=== PATIENT | female | born 1950 | race Caucasian/White ===

== ENCOUNTER → 2016-08-10 | Outpatient (CLI) | payer BC ==
[~2016-08-10] MED LIST: ADVIN50/60 INH; ALBU0.5N2 NEB; ALBUAER2 INH; ALL100 PO; ASPI81CH2 PO; DICL1GEL28 TOP; DOXE150C PO; ERGO500037 PO; FERR1TAB23 PO; FRS/40 PO; HYDR-5688 PO; INSDGI SC; LIRA18IN SC; LOSA1TAB PO; LRS10 PO; NVLGI SC; NXM/40 PO; RIZA10TA18 PO; SIMV20TA2 PO; SNG10 PO; SYN200 PO; TIOTCAP INH; TOPI200T14 PO; TOPI50TA16 PO; ZNTT/150 PO
[2016-08-10 12:58] LABS: HEMATOCRIT 37.8 % (37-47); MEAN CELL VOLUME 90.4 fL (80-100); MEAN CORPUSCULAR HEMOGLOBIN 27.5 pg (25-34); MEAN CORPUSCULAR HGB CONC 30.4 g/dl (32-36); MEAN PLATELET VOLUME 9.6 fL (7.4-10.4); PLATELET COUNT 284 K/uL (130-400); RED BLOOD COUNT 4.18 M/uL (4.2-5.4); WHITE BLOOD COUNT 10.07 K/uL (4.8-10.8)
[2016-08-10 13:10] LABS: BLOOD UREA NITROGEN 15 mg/dl (7-18); BUN/CREATININE RATIO 12.1 (10-20); CARBON DIOXIDE 25 mmol/L (21-32); CHLORIDE 108 mmol/L (98-107); GLUCOSE 84 mg/dl (70-99); PHOSPHORUS 3.1 mg/dl (2.5-4.9); POTASSIUM 4.3 mmol/L (3.5-5.1); SODIUM 143 mmol/L (136-145)
[2016-08-10 13:16] LABS: ESTIMATED AVERAGE GLUCOSE 117 mg/dl; HA1C FLAG Normal (Normal)
[2016-08-10 13:19] LABS: URINE APPEARANCE CLEAR (CLEAR); URINE BILIRUBIN NEG (NEG); URINE COLOR YELLOW; URINE NITRITE NEG (NEG); URINE SPECIFIC GRAVITY 1.016 (1.000-1.030); UROBILINOGEN NEG (NEG)
[2016-08-10 13:21] LABS: MANUAL MICROSCOPIC REQUIRED? NO; REVIEW REQ? NO
[2016-08-10 13:44] LABS: URINE PROTIEN/CREAT RATIO 0.2 (0-0.2); URINE TOTAL PROTEIN 18.4 mg/dl (0-11.9)
== END | disposition home or self-care (01) ==
LOC: C.LAB1850 11:20
PROVIDERS: ATTEND Internal Medicine Nephrology
DX: I12.9 Hypertensive chronic kidney disease with stage 1 through stage 4 chronic kidney disease, or unspecified chronic kidney disease (principal); N18.3 Chronic kidney disease, stage 3 (moderate); D64.9 Anemia, unspecified; R60.9 Edema, unspecified; E55.9 Vitamin D deficiency, unspecified; E11.22 Type 2 diabetes mellitus with diabetic chronic kidney disease

== ENCOUNTER → 2016-09-18 | Outpatient (CLI) | payer BC ==
--- NOTE | 2016-09-18 13:40 | DIAGNOSTIC IMAGING REPORT ---
CHEST 2 VIEWS ROUTINE CLINICAL HISTORY: Productive cough, fever and congestion. COMPARISON STUDY: Chest radiograph April 16, 2016. FINDINGS: This exam is compromised by suboptimal penetration. Lung volumes are normal. There is no pneumothorax or pleural effusion. Cardiac size is at the upper limits of normal and is unchanged. There is no evidence of pulmonary edema. No consolidation is identified. IMPRESSION: No acute cardiopulmonary findings. Electronically signed by: Lebron Shi M.D. 09/18/2016 1:38 PM Dictated Date/Time: 09/18/2016 1:37 PM
== END | disposition home or self-care (01) ==
LOC: C.RAD1850 13:04
PROVIDERS: ATTEND Internal Medicine
DX: R05 Cough (principal)

== ENCOUNTER → 2016-12-18 | Outpatient (CLI) | payer BC ==
[2016-12-18 12:42] LABS: BASO % 0.2 %; BASO ABS # 0.02 K/uL (0-0.2); COMPLETE YES; EOS % 1.6 %; HEMATOCRIT 37.9 % (37-47); IG% 0.5 %; LYMPH % 15.5 %; MEAN CELL VOLUME 91.5 fL (80-100); MEAN CORPUSCULAR HEMOGLOBIN 27.8 pg (25-34); MEAN CORPUSCULAR HGB CONC 30.3 g/dl (32-36); MEAN PLATELET VOLUME 9.6 fL (7.4-10.4); NEUT % 76.2 %; PLATELET COUNT 251 K/uL (130-400); RED BLOOD COUNT 4.14 M/uL (4.2-5.4); WHITE BLOOD COUNT 10.35 K/uL (4.8-10.8)
[2016-12-18 13:33] LABS: CHOLESTEROL/HDL RATIO 2.1; URIC ACID 6.6 mg/dl (2.6-7.2)
[2016-12-18 13:39] LABS: ESTIMATED AVERAGE GLUCOSE 117 mg/dl; HA1C FLAG Normal (Normal)
[2016-12-18 22:03] LABS: THYROID STIMULATING HORMONE 0.779 uIu/ml (0.300-4.500)
== END | disposition home or self-care (01) ==
LOC: C.LAB1850 10:38
PROVIDERS: ATTEND Internal Medicine
DX: I10 Essential (primary) hypertension (principal); M10.9 Gout, unspecified; E11.8 Type 2 diabetes mellitus with unspecified complications

== ENCOUNTER → 2017-01-28 | Outpatient (CLI) | payer BC ==
--- NOTE | 2017-01-28 11:47 | DIAGNOSTIC IMAGING REPORT ---
CHEST 2 VIEWS ROUTINE CLINICAL HISTORY: R05 Chronic [id number] dyspnea COMPARISON STUDY: 09/18/2016 FINDINGS: The bones soft tissues and hemidiaphragms are normal. The cardiomediastinal silhouette is normal. The lungs are clear. The pulmonary vasculature is normal. IMPRESSION: Negative chest. Electronically signed by: Bandar Jarquin M.D. 01/28/2017 11:45 AM Dictated Date/Time: 01/28/2017 11:44 AM
[2017-01-28 13:20] LABS: HEMATOCRIT 37.6 % (37-47); MEAN CORPUSCULAR HEMOGLOBIN 27.3 pg (25-34); MEAN CORPUSCULAR HGB CONC 30.3 g/dl (32-36); MEAN PLATELET VOLUME 9.6 fL (7.4-10.4); PLATELET COUNT 281 K/uL (130-400); RED BLOOD COUNT 4.18 M/uL (4.2-5.4); WHITE BLOOD COUNT 11.67 K/uL (4.8-10.8)
[2017-01-28 13:24] LABS: URINE APPEARANCE CLEAR (CLEAR); URINE BILIRUBIN NEG (NEG); URINE COLOR YELLOW; URINE EPITHELIAL CELL AUTO 0-5 /lpf (0-5); URINE NITRITE NEG (NEG); URINE PH 7.5 (4.5-7.5); URINE SPECIFIC GRAVITY 1.013 (1.000-1.030); UROBILINOGEN NEG (NEG)
[2017-01-28 13:25] LABS: MANUAL MICROSCOPIC REQUIRED? NO; REVIEW REQ? NO
[2017-01-28 13:44] LABS: BLOOD UREA NITROGEN 21 mg/dl (7-18); BUN/CREATININE RATIO 17.8 (10-20); CALCIUM 9.3 mg/dl (8.5-10.1); CARBON DIOXIDE 23 mmol/L (21-32); CHLORIDE 114 mmol/L (98-107); GLUCOSE 92 mg/dl (70-99); PHOSPHORUS 3.1 mg/dl (2.5-4.9); SODIUM 144 mmol/L (136-145)
[2017-01-29 10:13] LABS: URINE PROTIEN/CREAT RATIO 0.3 (0-0.2); URINE TOTAL PROTEIN 12.3 mg/dl (0-11.9)
== END | disposition home or self-care (01) ==
LOC: C.RAD1850 11:29
PROVIDERS: ATTEND Internal Medicine
DX: R05 Cough (principal); I10 Essential (primary) hypertension; N18.3 Chronic kidney disease, stage 3 (moderate); N25.81 Secondary hyperparathyroidism of renal origin; D64.9 Anemia, unspecified; E55.9 Vitamin D deficiency, unspecified

== ENCOUNTER → 2017-03-05 | Outpatient (CLI) | payer BC ==
[2017-03-05 13:41] LABS: URINE APPEARANCE CLEAR (CLEAR); URINE BILIRUBIN NEG (NEG); URINE COLOR YELLOW; URINE EPITHELIAL CELL AUTO >30 /lpf (0-5); URINE NITRITE NEG (NEG); URINE SPECIFIC GRAVITY 1.011 (1.000-1.030); UROBILINOGEN NEG (NEG)
[2017-03-05 13:42] LABS: MANUAL MICROSCOPIC REQUIRED? NO; REVIEW REQ? NO
== END | disposition home or self-care (01) ==
LOC: C.LABBC 11:28
PROVIDERS: ATTEND Internal Medicine
DX: R39.9 Unspecified symptoms and signs involving the genitourinary system (principal)

== ENCOUNTER → 2017-05-13 | Outpatient (CLI) | payer BC ==
--- NOTE | 2017-05-13 08:55 | DIAGNOSTIC IMAGING REPORT ---
ULTRASOUND ABDOMEN COMPLETE CLINICAL HISTORY: Generalized abdominal pain. COMPARISON STUDY: Abdominal CT dated 08/14/2009. TECHNIQUE: Real-time, grayscale, and color flow sonography of the abdomen was performed. Images are reviewed in the transverse and longitudinal planes. FINDINGS: Liver: The liver is normal in size and heterogeneous echotexture. There is no intrahepatic biliary ductal dilatation. The main portal vein is patent. Gallbladder: The gallbladder is surgically absent. The common bile duct measures up to 0.9 cm in diameter. Pancreas: Visualized portions of the pancreatic head and body are normal in appearance. Spleen: The spleen is normal in size and echotexture, measuring 12.2 cm in length. Kidneys: The kidneys are normal in size and echotexture. There is no hydronephrosis. The right kidney measures 9.1 cm in length and the left kidney measures 9.8 cm in length. No shadowing calculi are identified. Abdominal vasculature: Visualized portions of the abdominal aorta and IVC are normal as imaged. Ascites: None. IMPRESSION: 1. No acute sonographic abnormality is identified. 2. Status post cholecystectomy. Electronically signed by: Mike Collazo M.D. 05/13/2017 8:54 AM Dictated Date/Time: 05/13/2017 8:51 AM
== END | disposition home or self-care (01) ==
LOC: C.ULTR 07:58
PROVIDERS: ATTEND Internal Medicine
DX: R10.9 Unspecified abdominal pain (principal)

== ENCOUNTER → 2017-08-20 | Outpatient (CLI) | payer BC ==
[2017-08-20 17:37] LABS: HEMATOCRIT 39.6 % (37-47); HEMOGLOBIN 11.9 g/dL (12.0-16.0); MEAN CELL VOLUME 91.9 fL (80-100); MEAN CORPUSCULAR HEMOGLOBIN 27.6 pg (25-34); MEAN CORPUSCULAR HGB CONC 30.1 g/dl (32-36); MEAN PLATELET VOLUME 9.7 fL (7.4-10.4); PLATELET COUNT 243 K/uL (130-400); RED BLOOD COUNT 4.31 M/uL (4.2-5.4); RED CELL DISTRIBUTION WIDTH CV 15.7 % (11.5-14.5); RED CELL DISTRIBUTION WIDTH SD 52.3 fL (36.4-46.3); WHITE BLOOD COUNT 9.54 K/uL (4.8-10.8)
[2017-08-20 17:44] LABS: URINE APPEARANCE CLEAR (CLEAR); URINE BACTERIA AUTO 1+ (NEG); URINE BILIRUBIN NEG (NEG); URINE BLOOD HGB NEG (NEG); URINE COLOR YELLOW; URINE GLUCOSE(DIPSTICK) NEG (NEG); URINE KETONES NEG (NEG); URINE LEUKOCYTE ESTERASE TRACE (NEG); URINE NITRITE NEG (NEG); URINE PROTEIN(DIPSTICK) NEG (NEG); URINE RBC AUTO 0-4 /hpf (0-4); URINE SPECIFIC GRAVITY 1.023 (1.000-1.030); UROBILINOGEN NEG (NEG)
[2017-08-20 18:02] LABS: GLUCOSE 114 mg/dl (70-99)
[2017-08-20 18:02] LABS: ALBUMIN 3.5 gm/dl (3.4-5.0); BLOOD UREA NITROGEN 35 mg/dl (7-18); BUN/CREATININE RATIO 28.3 (10-20); CARBON DIOXIDE 25 mmol/L (21-32); CHLORIDE 109 mmol/L (98-107); CREATININE 1.22 mg/dl (0.60-1.20); EstGFR CKD-E AfrAm 54.2; EstGFR CKD-E NON AfrAm 46.8; POTASSIUM 4.1 mmol/L (3.5-5.1); SODIUM 141 mmol/L (136-145)
[2017-08-20 18:03] LABS: MANUAL MICROSCOPIC REQUIRED? NO; PHOSPHORUS 3.9 mg/dl (2.5-4.9); REVIEW REQ? NO
[2017-08-20 18:04] LABS: CREATININE, URINE 77.6 mg/dl; URINE TOTAL PROTEIN 21.1 mg/dl (0-11.9)
[2017-08-20 18:04] LABS: URINE PROTIEN/CREAT RATIO 0.3 (0-0.2)
[2017-08-20 18:12] LABS: CHOLESTEROL 136 mg/dl (0-200); CHOLESTEROL/HDL RATIO 2.1; HDL CHOLESTEROL 64 mg/dl; LDL CHOLESTEROL CALCULATED 59 mg/dl; TRIGLYCERIDES 64 mg/dl (0-150); VERY LOW DENSITY LIPOPROT CALC 13 mg/dl
[2017-08-20 18:14] LABS: PARATHYROID HORMONE INTACT** 204.9 pg/mL (18.4-80.1)
[2017-08-21 07:41] LABS: HEMOGLOBIN A1C 5.8 % (4.5-5.6)
[2017-08-21 07:41] LABS: ESTIMATED AVERAGE GLUCOSE 120 mg/dl; HA1C FLAG Normal (Normal)
== END | disposition home or self-care (01) ==
LOC: C.LABPVFM 13:26
DX: N18.3 Chronic kidney disease, stage 3 (moderate) (principal); D64.9 Anemia, unspecified; R60.9 Edema, unspecified; N25.81 Secondary hyperparathyroidism of renal origin; E55.9 Vitamin D deficiency, unspecified; E11.8 Type 2 diabetes mellitus with unspecified complications; E03.9 Hypothyroidism, unspecified; E78.5 Hyperlipidemia, unspecified

== ENCOUNTER → 2017-12-23 | Outpatient (CLI) | payer BC ==
[~2017-12-23] MED LIST changes: +RANI150T85 PO; -ZNTT/150 PO
[2017-12-23 13:25] LABS: BASO % 0.4 %; BASO ABS # 0.04 K/uL (0-0.2); EOS % 2.5 %; EOS ABS # 0.26 K/uL (0-0.5); HEMATOCRIT 37.4 % (37-47); HEMOGLOBIN 11.4 g/dL (12.0-16.0); LYMPH % 19.2 %; MEAN CELL VOLUME 90.6 fL (80-100); MEAN CORPUSCULAR HEMOGLOBIN 27.6 pg (25-34); MEAN CORPUSCULAR HGB CONC 30.5 g/dl (32-36); MEAN PLATELET VOLUME 9.5 fL (7.4-10.4); MONO % 6.7 %; NEUT % 70.2 %; NEUT ABS # 7.29 K/uL (1.4-6.5); PLATELET COUNT 233 K/uL (130-400); RED CELL DISTRIBUTION WIDTH CV 15.4 % (11.5-14.5); RED CELL DISTRIBUTION WIDTH SD 51.4 fL (36.4-46.3); WHITE BLOOD COUNT 10.39 K/uL (4.8-10.8)
[2017-12-23 14:16] LABS: ALKALINE PHOSPHATASE 123 U/L (45-117); ALT/SGPT 16 U/L (12-78); AST/SGOT 10 U/L (15-37); BLOOD UREA NITROGEN 23 mg/dl (7-18); CALCIUM 8.3 mg/dl (8.5-10.1); CARBON DIOXIDE 24 mmol/L (21-32); GLUCOSE 122 mg/dl (70-99); POTASSIUM 3.7 mmol/L (3.5-5.1); SODIUM 144 mmol/L (136-145); TOTAL PROTEIN 7.2 gm/dl (6.4-8.2)
[2017-12-23 14:25] LABS: URIC ACID 5.3 mg/dl (2.6-7.2)
[2017-12-24 06:43] LABS: HEMOGLOBIN A1C 6.1 % (4.5-5.6)
== END | disposition home or self-care (01) ==
LOC: C.LABPVFM 10:32
PROVIDERS: ATTEND Internal Medicine
DX: E03.9 Hypothyroidism, unspecified (principal); M10.9 Gout, unspecified; E11.649 Type 2 diabetes mellitus with hypoglycemia without coma; R51 Headache

== ENCOUNTER → 2018-02-25 | Outpatient (CLI) | payer OTHER ==
[2018-02-25 17:52] LABS: ALBUMIN 3.1 gm/dl (3.4-5.0); BLOOD UREA NITROGEN 19 mg/dl (7-18); CALCIUM 8.2 mg/dl (8.5-10.1); CARBON DIOXIDE 24 mmol/L (21-32); CREATININE 1.35 mg/dl (0.60-1.20); GLUCOSE 120 mg/dl (70-99); POTASSIUM 3.8 mmol/L (3.5-5.1); SODIUM 140 mmol/L (136-145)
[2018-02-25 17:54] LABS: HEMATOCRIT 37.8 % (37-47); HEMOGLOBIN 11.3 g/dL (12.0-16.0); MEAN CELL VOLUME 89.2 fL (80-100); MEAN CORPUSCULAR HEMOGLOBIN 26.7 pg (25-34); MEAN CORPUSCULAR HGB CONC 29.9 g/dl (32-36); PLATELET COUNT 277 K/uL (130-400); RED CELL DISTRIBUTION WIDTH CV 16.1 % (11.5-14.5); RED CELL DISTRIBUTION WIDTH SD 52.1 fL (36.4-46.3); WHITE BLOOD COUNT 9.68 K/uL (4.8-10.8)
== END | disposition home or self-care (01) ==
LOC: C.LABPVFM 14:31
PROVIDERS: ATTEND Internal Medicine Nephrology
DX: I12.9 Hypertensive chronic kidney disease with stage 1 through stage 4 chronic kidney disease, or unspecified chronic kidney disease (principal); N18.3 Chronic kidney disease, stage 3 (moderate); D64.9 Anemia, unspecified; E55.9 Vitamin D deficiency, unspecified; R60.9 Edema, unspecified

== ENCOUNTER 2020-01-10 11:24 | Inpatient (IN) ==
[2020-01-10] MEDS ORDERED: ALBUTEROL HFA 8 GM INHALER INH ONE (12:39)
[2020-01-10] MEDS ORDERED: SODIUM CHLORIDE 0.9% 1000ML 500 ML IV ONE (12:39)
--- NOTE | 2020-01-10 12:47 | Emergency Department Note ---
Impression & Plan Hypoxia, CHF (congestive heart failure), Respiratory acidosis, SOB (shortness of breath) ED Provider Note NAME: SALVADOR GALLOWAY AGE: 69 SEX: F : 1950 ARRIVES VIA: Ambulance INFORMANT: [Patient][ems, nurses] ED PROVIDER(S): [Mike Babb MD] CHIEF COMPLAINT: Shortness of breath HISTORY OF PRESENT ILLNESS: The patient is a 69-year-old female who presents to the ER with several days, if not a week, of increasing shortness of breath. The patient states that she has had a few falls, she is not sure why she fell, possibly because of weakness. No serious injury from the falls. She is not eating and drinking that much either. The patient states that she had a cough but it has been dry and nonproductive. No fever. No chest pain. 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 The patient does have asthma. She used her nebulizer last yesterday. There has been no urinary complaint, no vomiting or diarrhea. As per nursing staff, upon arrival, the patient's O2 saturation was around 50%. She was placed on facemask O2. Of note, the patient is not currently on an antibiotic or steroid. REVIEW OF SYSTEMS: See HPI for pertinent positives and negatives. A total of ten systems were reviewed and were otherwise negative. PMHx/PSHx: See Below SOCIAL HISTORY: See Below. PHYSICAL EXAM: GENERAL: Patient is in no acute distress. HEENT: No acute trauma, normocephalic atraumatic, mucous membranes quite dry, no nasal congestion, no scleral icterus. NECK: No stridor, no adenopathy, no meningismus, trachea is midline. LUNGS: Diminished breath sounds bilaterally, no wheezing, no rhonchi, breath sounds are equal, no apparent respiratory distress. HEART: Without murmurs gallops or rubs, regular rate and rhythm. ABDOMEN: Soft, nontender, bowel sounds positive, no hernias, no peritonitis. EXTREMITIES: No cyanosis, mild bilateral pedal edema with some chronic skin change bilaterally, full range of motion of all the joints without pain or difficulty, no signs for acute trauma. NEUROLOGIC: Oriented x 3, no acute motor or sensory deficits, no focal weakness. SKIN: No rash, no jaundice, no diaphoresis. DIFFERENTIAL DIAGNOSIS: Reactive airway disease, pneumonia, pneumothorax, coronavirus, bronchitis, asthma flare, COPD, CHF, infections, cardiac ischemia, pulmonary embolism, musculoskeletal, gastrointestinal, as well as other pathologies. EMERGENCY DEPARTMENT COURSE/PROCEDURES: ECG: Indication was shortness of breath. The ECG shows a normal sinus rhythm with some sinus arrhythmia. The rate is 86. There is no ST elevation, no PVCs. The QTc is 435. Continuous Cardiac Monitoring: An order was placed for continuous cardiac monitoring. The monitor shows a rate of 76 with normal sinus rhythm. Critical Care Note: I have personally spent greater than 42 minutes of critical care time in the direct management of this patient. This includes bedside care, interpretation of diagnostic studies, and testing, discussion with consultants, patient, and family members, and other required patient management activities. This 42 minutes is in excess of all separately billable procedures. MEDICAL DECISION MAKING: There is a mild leukocytosis which could be consistent with infection. The patient is anemic but looking back at previous testing, this appears to be baseline. No coagulopathy. ABG does show a respiratory acidosis with a pH of 7.16 and a PCO2 of 88. No hypoxia. There is some renal insufficiency but the creatinine numbers appear baseline looking back at previous testing. Lactic acid is not elevated making sepsis less likely. Alk phos slightly elevated, the remaining liver enzymes were unremarkable. BNP was not elevated making CHF less likely. EKG showed a sinus rhythm, no acute ischemia. Cardiac enzyme testing x1 is not consistent with acute cardiac injury. Urinalysis showed evidence for possible infection with bacteria and nitrites positive. Coronavirus testing returned negative. Chest film does show congestion to the parenchyma consistent with a diffuse atypical pneumonia versus some CHF. Chest CT shows similar findings to those on the chest x-ray. The patient was aggressively managed. She was given 6 puffs of albuterol with a spacer. She was given 2 g of IV ceftriaxone as empiric antibiotic coverage. She had a Peacock catheter placed and was given 40 mg of IV Lasix and 1 inch of Nitropaste. She received a 500 cc saline bolus. She was eventually placed on BiPAP. The patient has done well with her above treatment. The BiPAP seems to have helped quite a bit. The patient presents hypoxic and short of breath. She appears to have some fluid overload/CHF. She also appears to have a flare of her asthma, possibly bronchitis. An atypical pneumonia is also a possibility. Given her findings, given her hypoxia, hospitalization is clearly warranted. I spoke to the patient, I talked with case management. The on-call hospitalist has been consulted. Past Med/Surg History Medical History Chronic back pain Diverticular disease Fusion of spine C4-6 FUSION Hand crush injury Pulmonary embolism 2005 S/P TKA Temporomandibular joint disorder JAW NEVER LOCKED Thumb fracture Vitamin D deficiency (Chronic) Surgical History History of cholecystectomy OPEN History of colonoscopy History of endoscopic sinus surgery History of esophagogastroduodenoscopy (EGD) History of hysterectomy PITO WITH BSO History of total knee replacement RIGHT Family History Father Myocardial infarction Prostate cancer Colon cancer Mother Myocardial infarction Sister Myocardial infarction Denies family history of Ovarian cancer Breast cancer Social History Preferred Language: Tajik Communication Ability: Effective Visual Impairment: No Limitations Hearing Ability: Normal Oil Expert Required: No Beliefs That Will Affect Care: None marital status: / Current Living Situation: Alone current occupational status: retired Other Information That Helps Us Care for You: No Feels Safe at Home: Yes Safety Concerns: Feels Safe At This Time Smoking Status: Never smoker Second Hand Exposure: No ; Hx Alcohol Use: No Hx Substance Use: Yes substance use type: painkillers and prescription drug Dental Care, Regularly: No Physical Activity Frequency: 1-2 Times per Week Seatbelt Use: always Sunscreen Use: No Allergies Allergies Allergy/AdvReac Type Severity Reaction Status Date / Time NSAIDS (Non-Steroidal Allergy Severe HX KIDNEY Verified 01/10/20 13:14 Anti-Inflamma FAILURE Sulfa (Sulfonamide Allergy Unknown HIVES Verified 01/10/20 13:14 Antibiotics) levofloxacin AdvReac Verified 01/10/20 13:14 Home Meds Home Medications Medication Instructions Recorded Confirmed aspirin [Aspirin Low Dose] 81 mg PO HS 07/07/18 01/10/20 acetaminophen 650 mg 650 mg PO UD PRN tab 04/19/19 01/10/20 tablet,extended release albuterol sulfate 2.5 mg INH Q4H PRN 04/19/19 01/10/20 albuterol sulfate 90 mcg/actuation 2 puff INHALATION Q6H PRN 04/19/19 01/10/20 aerosol inhaler Previous Rx's Medication Instructions Recorded ferrous sulfate 325 mg (65 mg 325 mg PO DAILY #90 tab 04/20/19 iron) tablet furosemide 40 mg tablet 80 mg PO QAM #180 tab 04/25/19 montelukast 10 mg tablet 10 mg PO QPM #90 tab 04/25/19 Victoza 3-Ilya 0.6 mg/0.1 mL (18 1.8 mg SQ .COMPLEX 90 Days #3 box 05/15/19 mg/3 mL) subcutaneous pen injector NS levothyroxine 200 mcg tablet 200 mcg PO QAM #90 tab 07/13/19 esomeprazole magnesium 40 mg See Rx Instructions .ROUTE 07/19/19 capsule,delayed release .COMPLEX #180 capsule simvastatin 20 mg tablet 20 mg PO DAILY #90 tab 07/20/19 allopurinol 100 mg tablet See Rx Instructions .ROUTE 07/27/19 .COMPLEX #90 tablet nystatin 100,000 unit/mL oral 5 ml PO QID #250 ml 09/12/19 suspension Dexcom G6 Livestock Nutritionist #1 ea NS 09/22/19 Dexcom G6 Sensor #3 ea NS 09/22/19 Dexcom G6 Transmitter #1 ea NS 09/22/19 fluticasone 500 mcg-salmeterol 50 1 inh INHALATION BID #60 ea 09/22/19 mcg/dose blistr powdr for inhalation Novolog U-100 Insulin aspart 100 See Rx Instructions SUBCUT UD 90 09/26/19 unit/mL subcutaneous solution Days #30 ml NS hydrocodone 5 mg-acetaminophen 325 1 tab PO Q8H PRN #20 tab 10/05/19 mg tablet doxepin 100 mg capsule 100 mg PO DAILY #90 cap 10/16/19 ergocalciferol (vitamin D2) 1,250 1,250 mcg PO MONTHLY #12 cap 10/16/19 mcg (50,000 unit) capsule losartan 25 mg tablet 25 mg PO QAM #90 tab 10/16/19 topiramate 100 mg tablet 100 mg PO .COMPLEX #450 tab 10/16/19 sumatriptan succinate 100 mg tablet 100 mg PO .COMPLEX PRN 90 Days #27 10/23/19 tab tramadol 50 mg tablet 50 mg PO BID PRN #180 tab 11/27/19 Tresiba FlexTouch U-100 100 11 units SUBCUT HS #15 ml NS 12/07/19 unit/mL (3 mL) subcutaneous pen tiotropium bromide 18 mcg capsule 1 cap INHALATION HS #90 puffs 12/07/19 with inhalation device benzonatate 200 mg capsule 200 mg PO TID #90 cap 12/21/19 loratadine 10 mg tablet 10 mg PO DAILY #30 tab 12/21/19 OneTouch Delica Lancets 30 gauge #700 ea NS 12/22/19 fremanezumab-vfrm 225 mg/1.5 mL 225 mg SQ MONTHLY #4.5 ml 12/22/19 subcutaneous syringe pen needle, diabetic 31 gauge x #180 ea 12/22/1910/15" gabapentin 300 mg capsule 300 mg PO .COMPLEX 90 Days #450 cap 12/29/19 famotidine 40 mg tablet 40 mg PO DAILY #30 tab 01/02/20 Results & Data (ED) Vital Signs Vital Signs - 24 hr 01/10/20 11:25 01/10/20 12:35 01/10/20 13:58 Temperature 37.5 C Temperature Source Oral Pulse Rate 102 H Pulse Rate [Left Finger] 100 H 88 Pulse Rhythm [Left Finger] Pulse Strength [Left Finger] Respiratory Rate 24 24 24 Respiratory Effort / Characteristics Non-Labored Respiratory Depth Normal Respiratory Pattern Blood Pressure 105/45 L Blood Pressure [Right Arm] 116/83 159/89 H Blood Pressure Mean 65 Blood Pressure Mean [Right Arm] 94 112 Pulse Oximetry 54 L 96 98 Oxygen Delivery Method Room Air Nasal Cannula Non-rebreather Oxygen Flow Rate 15 15 15 Fraction of Inspired Oxygen Sepsis Recent Fever Within 48 Hours No Sepsis Action Taken by Nursing No Action Required Oxygen Flow Rate - Titration 15 Pulse Oximetry Post Tiitration 97 01/10/20 14:23 01/10/20 16:17 01/10/20 16:18 Temperature Temperature Source Pulse Rate 78 Pulse Rate [Left Finger] 76 Pulse Rhythm [Left Finger] Regular Pulse Strength [Left Finger] Normal Respiratory Rate 22 20 Respiratory Effort / Characteristics Spontaneous Labored Short of Breath Non-Labored Spontaneous Respiratory Depth Shallow Normal Respiratory Pattern Tachypnea Regular Blood Pressure Blood Pressure [Right Arm] Blood Pressure Mean Blood Pressure Mean [Right Arm] Pulse Oximetry 99 98 96 Oxygen Delivery Method CPAP CPAP Oxygen Flow Rate Fraction of Inspired Oxygen 60 Sepsis Recent Fever Within 48 Hours Sepsis Action Taken by Nursing Oxygen Flow Rate - Titration Pulse Oximetry Post Tiitration Home Medications Current Medication List: was personally reviewed by me Laboratory Data Attestation: I reviewed the patient's lab results. Result diagrams: 01/10/20 12:06 01/10/20 12:06 Lab Results 01/10/20 01/10/20 01/10/20 Range/Units 12:06 12:06 12:06 WBC 12.58 H (4.8-10.8) K/uL RBC 4.21 (4.2-5.4) M/uL Hgb 10.6 L (12.0-16.0) g/dL Hct 39.0 (37-47) % MCV 92.6 (80-100) fL MCH 25.2 (25-34) pg MCHC 27.2 L (32-36) g/dL RDW Std Deviation 57.4 H (36.4-46.3) fL RDW Coeff of Sara 17.0 H (11.5-14.5) % Plt Count 271 (130-400) K/uL MPV 9.4 (7.4-10.4) fL Immature Gran % (Auto) 3.2 % Neut % (Auto) 77.0 % Lymph % (Auto) 12.1 % Randolph % (Auto) 6.8 % Eos % (Auto) 0.5 % Baso % (Auto) 0.4 % Immature Gran # (Auto) 0.40 H (0.00-0.02) K/uL Neut # (Auto) 9.70 H (1.4-6.5) K/uL Lymph # (Auto) 1.52 (1.2-3.4) K/uL Randolph # (Auto) 0.85 H (0.11-0.59) K/uL Eos # (Auto) 0.06 (0-0.5) K/uL Baso # (Auto) 0.05 (0-0.2) K/uL Absolute Nucleated RBC 0.05 H (0-0) K/uL Nucleated RBC % (auto) 0.4 % PT 11.3 (9.0-12.0) Seconds INR 1.1 (0.9-1.1) APTT 33.7 H (21.0-31.0) Seconds PTT Ratio 1.2 ABG pH (7.35-7.45) ABG pCO2 (35-46) mmHg ABG pO2 (80-95) mmHg ABG HCO3 (19-24) mmol/L ABG O2 Saturation (90-95) % ABG Base Excess (-9-1.8) mEq/L Crispin Test (Pos) Barometric Pressure mm/Hg Oxygen Given Sodium 138 (136-145) mmol/L Potassium 4.2 (3.5-5.1) mmol/L Chloride 104 (98-107) mmol/L Carbon Dioxide 30 (21-32) mmol/L Anion Gap 4.0 (3-11) BUN 28 H (7-18) mg/dl Creatinine 1.48 H (0.6-1.2) mg/dl Est Cr Clr Drug Dosing 52.2 ml/min Est GFR ( Amer) 42.0 Est GFR (Non-Af Amer) 36.3 BUN/Creatinine Ratio 18.6 (10-20) Glucose 139 H (70-99) mg/dl Lactate (0.4-2.0) mmol/L Calcium 8.1 L (8.5-10.1) mg/dl Magnesium 2.4 (1.8-2.4) mg/dl Total Bilirubin 0.4 (0.2-1) mg/dl AST 23 (15-37) U/L ALT 26 (12-78) U/L Alkaline Phosphatase 151 H (45-117) U/L Troponin I 0.017 (0-0.045) ng/ml NT-Pro-B Natriuret Pep (0-900) pg/ml Total Protein 7.4 (6.4-8.2) gm/dl Albumin 3.0 L (3.4-5.0) gm/dl Globulin 4.4 H (2.5-4.0) gm/dl Albumin/Globulin Ratio 0.7 L (0.9-2) Urine Color Urine Appearance (Clear) Urine pH (4.5-7.5) Ur Specific Mcintosh (1.000-1.030) Urine Protein (Negative) Urine Glucose (UA) (Negative) Urine Ketones (Negative) Urine Blood (Negative) Urine Nitrite (Negative) Urine Bilirubin (Negative) Urine Urobilinogen (Negative) Ur Leukocyte Esterase (Negative) Urine WBC (Auto) (0-5) /hpf Urine RBC (Auto) (0-4) /hpf U Hyaline Cast (Auto) (0-5) /lpf U Epithel Cells (Auto) (0-5) /lpf Urine Bacteria (Auto) (Negative) Ur Renal Epithelial Cell COVID-19 PCR (Negative) 01/10/20 01/10/20 01/10/20 Range/Units 12:06 12:06 12:06 WBC (4.8-10.8) K/uL RBC (4.2-5.4) M/uL Hgb (12.0-16.0) g/dL Hct (37-47) % MCV (80-100) fL MCH (25-34) pg MCHC (32-36) g/dL RDW Std Deviation (36.4-46.3) fL RDW Coeff of Sara (11.5-14.5) % Plt Count (130-400) K/uL MPV (7.4-10.4) fL Immature Gran % (Auto) % Neut % (Auto) % Lymph % (Auto) % Randolph % (Auto) % Eos % (Auto) % Baso % (Auto) % Immature Gran # (Auto) (0.00-0.02) K/uL Neut # (Auto) (1.4-6.5) K/uL Lymph # (Auto) (1.2-3.4) K/uL Randolph # (Auto) (0.11-0.59) K/uL Eos # (Auto) (0-0.5) K/uL Baso # (Auto) (0-0.2) K/uL Absolute Nucleated RBC (0-0) K/uL Nucleated RBC % (auto) % PT (9.0-12.0) Seconds INR (0.9-1.1) APTT (21.0-31.0) Seconds PTT Ratio ABG pH (7.35-7.45) ABG pCO2 (35-46) mmHg ABG pO2 (80-95) mmHg ABG HCO3 (19-24) mmol/L ABG O2 Saturation (90-95) % ABG Base Excess (-9-1.8) mEq/L Crispin Test (Pos) Barometric Pressure mm/Hg Oxygen Given Sodium (136-145) mmol/L Potassium (3.5-5.1) mmol/L Chloride (98-107) mmol/L Carbon Dioxide (21-32) mmol/L Anion Gap (3-11) BUN (7-18) mg/dl Creatinine (0.6-1.2) mg/dl Est Cr Clr Drug Dosing ml/min Est GFR ( Amer) Est GFR (Non-Af Amer) BUN/Creatinine Ratio (10-20) Glucose (70-99) mg/dl Lactate (0.4-2.0) mmol/L Calcium (8.5-10.1) mg/dl Magnesium (1.8-2.4) mg/dl Total Bilirubin (0.2-1) mg/dl AST (15-37) U/L ALT (12-78) U/L Alkaline Phosphatase (45-117) U/L Troponin I (0-0.045) ng/ml NT-Pro-B Natriuret Pep 711 (0-900) pg/ml Total Protein (6.4-8.2) gm/dl Albumin (3.4-5.0) gm/dl Globulin (2.5-4.0) gm/dl Albumin/Globulin Ratio (0.9-2) Urine Color Dark Yellow Urine Appearance Clear (Clear) Urine pH 5.0 (4.5-7.5) Ur Specific Mcintosh 1.022 (1.000-1.030) Urine Protein Negative (Negative) Urine Glucose (UA) Negative (Negative) Urine Ketones Negative (Negative) Urine Blood Trace H (Negative) Urine Nitrite Positive A (Negative) Urine Bilirubin Negative (Negative) Urine Urobilinogen Negative (Negative) Ur Leukocyte Esterase Trace H (Negative) Urine WBC (Auto) 5-10 H (0-5) /hpf Urine RBC (Auto) 0-4 (0-4) /hpf U Hyaline Cast (Auto) 10-30 H (0-5) /lpf U Epithel Cells (Auto) >30 H (0-5) /lpf Urine Bacteria (Auto) 4+ H (Negative) Ur Renal Epithelial Cell Not Reportable COVID-19 PCR NEGATIVE (Negative) 01/10/20 01/10/20 Range/Units 13:48 13:48 WBC (4.8-10.8) K/uL RBC (4.2-5.4) M/uL Hgb (12.0-16.0) g/dL Hct (37-47) % MCV (80-100) fL MCH (25-34) pg MCHC (32-36) g/dL RDW Std Deviation (36.4-46.3) fL RDW Coeff of Sara (11.5-14.5) % Plt Count (130-400) K/uL MPV (7.4-10.4) fL Immature Gran % (Auto) % Neut % (Auto) % Lymph % (Auto) % Randolph % (Auto) % Eos % (Auto) % Baso % (Auto) % Immature Gran # (Auto) (0.00-0.02) K/uL Neut # (Auto) (1.4-6.5) K/uL Lymph # (Auto) (1.2-3.4) K/uL Randolph # (Auto) (0.11-0.59) K/uL Eos # (Auto) (0-0.5) K/uL Baso # (Auto) (0-0.2) K/uL Absolute Nucleated RBC (0-0) K/uL Nucleated RBC % (auto) % PT (9.0-12.0) Seconds INR (0.9-1.1) APTT (21.0-31.0) Seconds PTT Ratio ABG pH 7.16 L* (7.35-7.45) ABG pCO2 88 H (35-46) mmHg ABG pO2 142 H (80-95) mmHg ABG HCO3 31 H (19-24) mmol/L ABG O2 Saturation 98.0 H (90-95) % ABG Base Excess 0.1 (-9-1.8) mEq/L Crispin Test Pos (Pos) Barometric Pressure 729.3 mm/Hg Oxygen Given 15 L Sodium (136-145) mmol/L Potassium (3.5-5.1) mmol/L Chloride (98-107) mmol/L Carbon Dioxide (21-32) mmol/L Anion Gap (3-11) BUN (7-18) mg/dl Creatinine (0.6-1.2) mg/dl Est Cr Clr Drug Dosing ml/min Est GFR ( Amer) Est GFR (Non-Af Amer) BUN/Creatinine Ratio (10-20) Glucose (70-99) mg/dl Lactate 0.5 (0.4-2.0) mmol/L Calcium (8.5-10.1) mg/dl Magnesium (1.8-2.4) mg/dl Total Bilirubin (0.2-1) mg/dl AST (15-37) U/L ALT (12-78) U/L Alkaline Phosphatase (45-117) U/L Troponin I (0-0.045) ng/ml NT-Pro-B Natriuret Pep (0-900) pg/ml Total Protein (6.4-8.2) gm/dl Albumin (3.4-5.0) gm/dl Globulin (2.5-4.0) gm/dl Albumin/Globulin Ratio (0.9-2) Urine Color Urine Appearance (Clear) Urine pH (4.5-7.5) Ur Specific Mcintosh (1.000-1.030) Urine Protein (Negative) Urine Glucose (UA) (Negative) Urine Ketones (Negative) Urine Blood (Negative) Urine Nitrite (Negative) Urine Bilirubin (Negative) Urine Urobilinogen (Negative) Ur Leukocyte Esterase (Negative) Urine WBC (Auto) (0-5) /hpf Urine RBC (Auto) (0-4) /hpf U Hyaline Cast (Auto) (0-5) /lpf U Epithel Cells (Auto) (0-5) /lpf Urine Bacteria (Auto) (Negative) Ur Renal Epithelial Cell COVID-19 PCR (Negative) Administered Medications Discontinued Medications Albuterol (Ventolin Hfa) 6 puffs INH NOW ONE Stop: 01/10/20 12:40 Last Admin: 01/10/20 13:10 Dose: 6 puffs Documented by: [id number] Furosemide (Lasix) 40 mg IV NOW STA Stop: 01/10/20 14:05 Last Admin: 01/10/20 15:13 Dose: 40 mg Documented by: [id number] Sodium Chloride (Nss 1000ml) 500 mls @ 999 mls/hr IV .Q31M ONE Stop: 01/10/20 13:09 Last Infusion: 01/10/20 16:23 Dose: 0 mls/hr Documented by: [id number] Admin: 01/10/20 13:10 Dose: 999 mls/hr Documented by: [id number] Ceftriaxone Sodium (Rocephin) 2,000 mg in 70 mls @ 140 mls/hr IV NOW STA Stop: 01/10/20 14:12 Last Infusion: 01/10/20 16:23 Dose: 0 mls/hr Documented by: [id number] Admin: 01/10/20 15:12 Dose: 140 mls/hr Documented by: [id number] Nitroglycerin (Nitro-Bid 2%) 1 inch EXT NOW STA Stop: 01/10/20 14:05 Last Admin: 01/10/20 14:20 Dose: 1 inch Documented by: [id number] Imaging Data Radiologist's Impression: XR chest 1V portable CLINICAL HISTORY: Shortness of breath. COMPARISON STUDY: Chest CT March 23, 2019. Chest radiograph September 12, 2019. FINDINGS: There is no pneumothorax or pleural effusion. Interstitial thickening and bilateral opacities have developed since exam of September 12, 2019. Lung volumes are mildly diminished. Cardiomegaly is noted. Right hilar prominence is noted. IMPRESSION: 1. Interstitial thickening and bilateral opacities new since radiographs of 2019. Pulmonary edema is favored however an infectious process could appear similar. Radiographic follow-up is recommended. 2. Right hilar prominence which is likely due to pulmonary vessels but can be assessed on subsequent radiographs. CT chest wo con CT DOSE: 689.18 mGycm CLINICAL HISTORY: 69 years-old Female with sob. Acute shortness of breath TECHNIQUE: Multiaxial CT images of the chest were performed without contrast. A dose lowering technique was utilized adhering to the principles of ALARA. COMPARISON: CTA of the chest 03/23/2019 FINDINGS: Cardiomegaly. No thoracic aortic aneurysm. Dilation of the pulmonary artery suggests pulmonary artery hypertension. There are a few prominent mildly enlarged paratracheal lymph nodes measuring up to 10 mm in short axis, unchanged and likely reactive. Trace pleural effusions. Study is motion degraded. No pneumothorax. Evaluation of the lung parenchyma is limited secondary to respiratory motion. There is suggestion of mild emphysema. Intralobular septal thickening is noted with areas of mosaic attenuation. Linear consolidative opacities are present within the right greater than left lungs with intermixed groundglass densities. There is decreased AP dimension of the trachea and bronchi. Hepatosplenomegaly. Trace perihepatic ascites. Soft tissues are unremarkable. Degenerative changes of the shoulders and spine. IMPRESSION: 1. Cardiomegaly with trace pericardial effusions and mild pulmonary edema. 2. Findings suggestive of tracheobronchial malacia with mosaic attenuation suggestive of air trapping. 3. Linear consolidative and intermixed groundglass densities, most pronounced within the right upper lobe are suggestive of atelectasis. A superimposed pneumonitis would be difficult to exclude. 4. Mild mediastinal adenopathy, likely reactive. 5. Dilated main pulmonary artery likely indicates pulmonary artery hypertension. Blood Pressure Blood Pressure Findings: Elevated blood pressure Blood Pressure Disposition: further management by hospitalist Discharge Plan Visit Data *Final* Discharge Date/Time: 01/10/20 18:55 Chief Complaint: Shortness of Breath/Dyspnea ED Provider: Mike Babb Discharge Problem: Hypoxia, CHF (congestive heart failure), Respiratory acidosis, SOB (shortness of breath) Patient Disposition: Admitted As Inpatient Condition: Fair Discharge Instructions Interventions: ED Discharge Assessment Last Done: 01/10/20 18:55 Discharge Problem: CHF (congestive heart failure) Qualifiers: Heart failure type: unspecified Heart failure chronicity: acute Qualified Code(s): I50.9 - Heart failure, unspecified
[2020-01-10 13:00] LABS: BUN Creatinine Ratio 18.6 (10-20); Calcium 8.1 mg/dl (8.5-10.1); Creatinine Clr Calc Pharmacy 52.2 ml/min; Est GFR (Non-African American) 36.3; Magnesium 2.4 mg/dl (1.8-2.4); Potassium 4.2 mmol/L (3.5-5.1)
[2020-01-10 13:03] LABS: INR 1.1 (0.9-1.1); Partial Thromboplastin Ratio 1.2; Partial Thromboplastin Time 33.7 Seconds (21.0-31.0); Prothrombin Time 11.3 Seconds (9.0-12.0)
[2020-01-10 13:05] LABS: Albumin Globulin Ratio 0.7 (0.9-2); Bilirubin,Total 0.4 mg/dl (0.2-1); Globulin 4.4 gm/dl (2.5-4.0); Total Protein 7.4 gm/dl (6.4-8.2); Troponin I 0.017 ng/ml (0-0.045)
[2020-01-10 13:10] LABS: Basophils # (auto) 0.05 K/uL (0-0.2); Basophils % (auto) 0.4 %; Eosinophils # (auto) 0.06 K/uL (0-0.5); Eosinophils % (auto) 0.5 %; Hemoglobin 10.6 g/dL (12.0-16.0); Immature Granulocytes % (auto) 3.2 %; Lymphocytes # (auto) 1.52 K/uL (1.2-3.4); Lymphocytes % (auto) 12.1 %; Mean Corpuscular Hemoglobin 25.2 pg (25-34); Mean Corpuscular Hgb Conc 27.2 g/dL (32-36); Mean Corpuscular Volume 92.6 fL (80-100); Mean Platelet Volume 9.4 fL (7.4-10.4); Monocytes # (auto) 0.85 K/uL (0.11-0.59); Monocytes % (auto) 6.8 %; Nucleated RBC # (auto) 0.05 K/uL (0-0); Nucleated RBC % (auto) 0.4 %; Platelet Count 271 K/uL (130-400); RDW Standard Deviation 57.4 fL (36.4-46.3); Red Blood Count 4.21 M/uL (4.2-5.4); White Blood Count 12.58 K/uL (4.8-10.8)
[2020-01-10 13:11] LABS: Appearance Urine Clear (Clear); Bacteria Urine Automated 4+ (Negative); Bilirubin Urine Negative (Negative); Blood Urine Trace (Negative); Color Urine Dark Yellow; Epithelial Cell Urine Auto >30 /lpf (0-5); Glucose Urine UA Negative (Negative); Ketones Urine Negative (Negative); Leukocyte Esterase Urine Trace (Negative); Nitrite Urine Positive (Negative); Protein Urine Negative (Negative); RBC Urine Automated 0-4 /hpf (0-4); Specific Gravity Urine 1.022 (1.000-1.030); Urobilinogen Urine Negative (Negative)
[2020-01-10] MEDS ORDERED: cefTRIAXone SODIUM 2,000 MG/70 ML BAG IV STA (13:43)
--- NOTE | 2020-01-10 14:01 | XRay Report ---
XR chest 1V portable CLINICAL HISTORY: Shortness of breath. COMPARISON STUDY: Chest CT March 23, 2019. Chest radiograph September 12, 2019. FINDINGS: There is no pneumothorax or pleural effusion. Interstitial thickening and bilateral opaciti es have developed since exam of September 12, 2019. Lung volumes are mildly diminished. Cardiomegaly i s noted. Right hilar prominence is noted. IMPRESSION: 1. Interstitial thickening and bilateral opacities new since radiographs of September 12, 2019. Pulmon vanesa edema is favored however an infectious process could appear similar. Radiographic follow-up is re commended. 2. Right hilar prominence which is likely due to pulmonary vessels but can be assessed on subsequent radiographs. ACT 112: Negative or not required by law. Electronically signed by: Lebron Shi M.D. 01/10/2020 1:59 PM
[2020-01-10 14:02] LABS: Base Excess ABG 0.1 mEq/L (-9-1.8); HCO3 ABG 31 mmol/L (19-24); PCO2 ABG 88 mmHg (35-46); PO2 ABG 142 mmHg (80-95)
[2020-01-10 14:03] LABS: Allen Test Pos (Pos); pH ABG 7.16 (7.35-7.45)
[2020-01-10] MEDS ORDERED: FUROSEMIDE 40 MG/4 ML VIAL IV STA (14:04)
[2020-01-10] MEDS ORDERED: NITROGLYCERIN 2% OINTMENT 30GM TUBE EXT STA (14:04)
--- NOTE | 2020-01-10 15:07 | CT Scan Report ---
CT chest wo con CT DOSE: 689.18 mGycm CLINICAL HISTORY: 69 years-old Female with sob. Acute shortness of breath TECHNIQUE: Multiaxial CT images of the chest were performed without contrast. A dose lowering techni que was utilized adhering to the principles of ALARA. COMPARISON: CTA of the chest 03/23/2019 FINDINGS: Cardiomegaly. No thoracic aortic aneurysm. Dilation of the pulmonary artery suggests pulmonary artery hypertension. There are a few prominent mildly enlarged paratracheal lymph nodes measuring up to 10 mm in short axis, unchanged and likely reactive. Trace pleural effusions. Study is motion degraded. No pneumothorax. Evaluation of the lung parenchyma is limited secondary to respiratory motion. There is suggestion of mild emphysema. Intralobular sept al thickening is noted with areas of mosaic attenuation. Linear consolidative opacities are present w ithin the right greater than left lungs with intermixed groundglass densities. There is decreased AP dimension of the trachea and bronchi. Hepatosplenomegaly. Trace perihepatic ascites. Soft tissues are unremarkable. Degenerative changes of the shoulders and spine. IMPRESSION: 1. Cardiomegaly with trace pericardial effusions and mild pulmonary edema. 2. Findings suggestive of tracheobronchial malacia with mosaic attenuation suggestive of air trapping . 3. Linear consolidative and intermixed groundglass densities, most pronounced within the right upper lobe are suggestive of atelectasis. A superimposed pneumonitis would be difficult to exclude. 4. Mild mediastinal adenopathy, likely reactive. 5. Dilated main pulmonary artery likely indicates pulmonary artery hypertension. ACT 112: Negative or not required by law. Electronically signed by: Linedn Medellin M.D. 01/10/2020 3:05 PM
--- NOTE | 2020-01-10 17:13 | History & Physical Report ---
Date of Service January 10, 2020 Assessment & Plan (1) Hypercapnic respiratory failure: ABG on admission shows pH 7.16/88/142: acute hypercapnic respiratory failure. Ddx includes COPD exacerbation/asthma attack, pneumonia, tracheomalacia, or CHF (though no swelling and BNP normal). Improving morrison bstantially on BiPap which makes sense with COPD/asthma vs. tracheomalacia. - Get procalcitonin - Continue CAP abx - BiPap PRN - DuoNebs standing - Hold steroids for tracheomalacia seen on CT chest; will defer to pulm. No wheezing on exam in the ED. - Pulm consulted - Echo ordered given concern for CHF. - Hold further Lasix for now after getting IV dose in the ED. (2) Chronic kidney disease, stage 3 (moderate): Baseline Cr ~1.25, eGFR ~45. - On presentation, Cr up to 1.45. - ED felt she was in CHF, so gave her Lasix (but also gave her 500 mL IV fluids). I think she appears mildly hypovolemic. - Will give gentle IV fluids and limited amount. - Monitor Cr (3) Diabetes mellitus with diabetic nephropathy: A1c was 6.3% in 10/2019. - Continue evening Lantus at 10 units (slightly lower than home 11 units) - Sliding scale insulin - Hold her other DM medications - Hold gabapentin for now given her hypercapnea; however, can restart as she wakes up more and respiratory status stabilizes. (4) Hypertension: BP was 160/90 in the ED. She was put on a Nitro-patch. - Continue home losartan - Hold home Lasix for now (5) Migraines: Long-standing and fairly difficult to manage. - Continue home doxepin, topiramate - Hold Avjoy given it is not on formulary and only monthly anyhow. - Tylenol and sumatriptan PRN (6) Sleep apnea: Reports she consistently uses a CPAP at home. - BiPap as above (7) Hypothyroidism: TSH was 0.8 in 10/2019 and was consistent with priors. - Continue home levothyroxine 200 mcg. (8) Hyperlipidemia: - Continue statin (9) DVT prophylaxis: Heparin 5000 units Q12h DNR/DNI - Discussed with patient. She is ok with CPAP/BiPap, but would not want intubation, CPR, cardioversion, or other life-saving measures. History of Present Illness Primary Care Provider: Edis Bar MD 69yo F w/ hx of DM, migraine, CKD, and HTN who presents with worsening hypercapneic respiratory failure. Per the patient, she has been increasingly short of breath for at least 3-4 weeks. It predominantly occurs when she is lying down, but overall has been getting worse even with movement and being upright. She reports that she sometimes has some mild sputum production when she lays down, but overall not much and no significant recent change in sputum color or quantity. She does report she has been wheezing some at home, and she uses inhalers for this. She also has maintenance inhalers, though I am unclear if she has a diagnosis of COPD or not. She has never been a smoker. She denies any fever or chills at home. Denies any family contacts that are sick. She has allergies and has been on Singulair for this as well as OTC Claritin. Allergies Allergy/AdvReac Type Severity Reaction Status Date / Time NSAIDS (Non-Steroidal Allergy Severe HX KIDNEY Verified 01/10/20 13:14 Anti-Inflamma FAILURE Sulfa (Sulfonamide Allergy Unknown HIVES Verified 01/10/20 13:14 Antibiotics) levofloxacin AdvReac Verified 01/10/20 13:14 Home Medications Home Medications Medication Instructions Recorded Confirmed Type aspirin [Aspirin Low Dose] 81 mg PO HS 07/07/18 01/10/20 History acetaminophen 650 mg 650 mg PO UD PRN tab 04/19/19 01/10/20 History tablet,extended release albuterol sulfate 2.5 mg INH Q4H PRN 04/19/19 01/10/20 History albuterol sulfate 90 mcg/actuation 2 puff INHALATION Q6H PRN 04/19/19 01/10/20 History aerosol inhaler ferrous sulfate 325 mg (65 mg 325 mg PO DAILY #90 tab 04/20/19 01/10/20 Rx iron) tablet furosemide 40 mg tablet 80 mg PO QAM #180 tab 04/25/19 01/10/20 Rx montelukast 10 mg tablet 10 mg PO QPM #90 tab 04/25/19 01/10/20 Rx Victoza 3-Ilya 0.6 mg/0.1 mL (18 1.8 mg SQ .COMPLEX 90 Days #3 box 05/15/19 01/10/20 Rx mg/3 mL) subcutaneous pen injector NS levothyroxine 200 mcg tablet 200 mcg PO QAM #90 tab 07/13/19 01/10/20 Rx esomeprazole magnesium 40 mg See Rx Instructions .ROUTE 07/19/19 01/10/20 Rx capsule,delayed release .COMPLEX #180 capsule simvastatin 20 mg tablet 20 mg PO DAILY #90 tab 07/20/19 01/10/20 Rx allopurinol 100 mg tablet See Rx Instructions .ROUTE 07/27/19 01/10/20 Rx .COMPLEX #90 tablet nystatin 100,000 unit/mL oral 5 ml PO QID #250 ml 09/12/19 01/10/20 Rx suspension Dexcom G6 Wheel Worker #1 ea NS 09/22/19 01/10/20 Rx Dexcom G6 Sensor #3 ea NS 09/22/19 01/10/20 Rx Dexcom G6 Transmitter #1 ea NS 09/22/19 01/10/20 Rx fluticasone 500 mcg-salmeterol 50 1 inh INHALATION BID #60 ea 09/22/19 01/10/20 Rx mcg/dose blistr powdr for inhalation Novolog U-100 Insulin aspart 100 See Rx Instructions SUBCUT UD 90 09/26/19 01/10/20 Rx unit/mL subcutaneous solution Days #30 ml NS hydrocodone 5 mg-acetaminophen 325 1 tab PO Q8H PRN #20 tab 10/05/19 01/10/20 Rx mg tablet doxepin 100 mg capsule 100 mg PO DAILY #90 cap 10/16/19 01/10/20 Rx ergocalciferol (vitamin D2) 1,250 1,250 mcg PO MONTHLY #12 cap 10/16/19 01/10/20 Rx mcg (50,000 unit) capsule losartan 25 mg tablet 25 mg PO QAM #90 tab 10/16/19 01/10/20 Rx topiramate 100 mg tablet 100 mg PO .COMPLEX #450 tab 10/16/19 01/10/20 Rx sumatriptan succinate 100 mg tablet 100 mg PO .COMPLEX PRN 90 Days #27 10/23/19 01/10/20 Rx tab tramadol 50 mg tablet 50 mg PO BID PRN #180 tab 11/27/19 01/10/20 Rx Tresiba FlexTouch U-100 100 11 units SUBCUT HS #15 ml NS 12/07/19 01/10/20 Rx unit/mL (3 mL) subcutaneous pen tiotropium bromide 18 mcg capsule 1 cap INHALATION HS #90 puffs 12/07/19 01/10/20 Rx with inhalation device benzonatate 200 mg capsule 200 mg PO TID #90 cap 12/21/19 01/10/20 Rx loratadine 10 mg tablet 10 mg PO DAILY #30 tab 12/21/19 01/10/20 Rx OneTouch Delica Lancets 30 gauge #700 ea NS 12/22/19 01/10/20 Rx fremanezumab-vfrm 225 mg/1.5 mL 225 mg SQ MONTHLY #4.5 ml 12/22/19 01/10/20 Rx subcutaneous syringe pen needle, diabetic 31 gauge x #180 ea 12/22/19 01/10/20 Rx 3/16" gabapentin 300 mg capsule 300 mg PO .COMPLEX 90 Days #450 cap 12/29/19 01/10/20 Rx famotidine 40 mg tablet 40 mg PO DAILY #30 tab 01/02/20 01/10/20 Rx Past Med/Surg History Medical History Chronic back pain Diverticular disease Fusion of spine C4-6 FUSION Hand crush injury Pulmonary embolism 2005 S/P TKA Temporomandibular joint disorder JAW NEVER LOCKED Thumb fracture Vitamin D deficiency (Chronic) Surgical History History of cholecystectomy OPEN History of colonoscopy History of endoscopic sinus surgery History of esophagogastroduodenoscopy (EGD) History of hysterectomy PITO WITH BSO History of total knee replacement RIGHT Family History Father Myocardial infarction Prostate cancer Colon cancer Mother Myocardial infarction Sister Myocardial infarction Denies family history of Ovarian cancer Breast cancer Social History Preferred Language: Montenegrin Communication Ability: Effective Visual Impairment: No Limitations Hearing Ability: Normal Sole Trimmer Required: No Beliefs That Will Affect Care: None marital status: / Current Living Situation: Alone current occupational status: retired Other Information That Helps Us Care for You: No Feels Safe at Home: Yes Safety Concerns: Feels Safe At This Time Smoking Status: Never smoker Second Hand Exposure: No ; Hx Alcohol Use: No Hx Substance Use: Yes substance use type: painkillers and prescription drug Dental Care, Regularly: No Physical Activity Frequency: 1-2 Times per Week Seatbelt Use: always Sunscreen Use: No Review of Systems Review of Systems: All systems reviewed & are unremarkable except as noted in HPI & below Physical Exam Constitutional: WD/WN, vitals as above + acute distress and + morbidly obese Eyes: EOM intact bilaterally; no conjunctival abnormality ENMT: external ear and nose normal, oropharynx normal Neck: trachea midline, no thyromegaly normal visual inspection Respiratory: + labored breathing, + uses accessory muscles and + tachypneic; no cough Auscultation: no wheezes Cardiovascular: RRR, no murmur, no edema Gastrointestinal (Abdomen): Inspection/Auscultation: abdomen normal to inspection; abdomen not distended Musculoskeletal: no cyanosis or clubbing, extremities motor strength 5/5 Skin: no rashes, warm and dry Neurologic: moves all extremities and awake Psychiatric: Orientation: alert, oriented to person and cooperative Results & Data Results & Data ([facility]) Vital Signs (Past 12 Hours) Vital Signs Temp Pulse Pulse Resp BP BP Pulse Ox 01/10/20 16:18 76 20 96 01/10/20 16:17 98 01/10/20 14:23 78 22 99 01/10/20 13:58 88 24 159/89 H 98 01/10/20 12:35 100 H 24 116/83 96 01/10/20 11:25 37.5 C 102 H 24 105/45 L 54 L PG Care Time/CCT Total # of Minutes Spent Total Time Spent with Patient: Total time spent is greater than 50% in coordination of care (as documented) at patient's floor/unit and/or counseling patient: Coding Level of Care Code 56779 Initial Inpt Care Lvl 3 Diagnoses Hypercapnic respiratory failure J96.92 Chronic kidney disease, stage 3 (moderate) N18.3 Diabetes mellitus with diabetic nephropathy E11.21 Hypertension I10 Migraines G43.909 Sleep apnea G47.30 Hypothyroidism E03.9 Hyperlipidemia E78.5 DVT prophylaxis Z29.9
[2020-01-10] MEDS ORDERED: NORMOSOL-R 500 ML IV ONE (19:38)
[2020-01-10] MEDS ORDERED: ONDANSETRON INJ 2 MG/ML 2 ML VIAL IV PRN (19:38)
[2020-01-10] MEDS ORDERED: GLUCOSE 40% GEL 15 GM TUBE PO PRN (19:38)
[2020-01-10] MEDS ORDERED: ACETAMINOPHEN 325 MG TAB PO PRN (19:38)
[2020-01-10] MEDS ORDERED: DEXTROSE 50% 50 ML SYRINGE IV PRN (19:38)
[2020-01-10] MEDS ORDERED: TOPIRAMATE 100 MG TAB PO SCH (19:38)
[2020-01-10] MEDS ORDERED: GLUCOSE 10 TABS/TUBE PO PRN (19:38)
[2020-01-10] MEDS ORDERED: GLUCAGON FOR INJ 1 MG VIAL SQ PRN (19:38)
[2020-01-10] MEDS ORDERED: CARBOHYDRATES FOR HYPOGLYCEMIA PO PRN (19:38)
[2020-01-10] MEDS ORDERED: AZITHROMYCIN 500 MG in DEXTROSE 5% 250 ML IV ONE (20:00)
[2020-01-10] MEDS: ALBUT/IPRATROP 3MG/0.5MG NEB 3 ML VIAL NEB SCH ×2 (20:18→22:59)
[2020-01-10] MEDS: INSULIN ASPART 100 UNITS/ML 3 ML PEN SC SCH (21:11)
[2020-01-10] MEDS: INSULIN GLARGINE SOLOSTAR 100 UNITS/ML 3 ML PEN SQ SCH (21:12)
[2020-01-10] MEDS: HEPARIN SOD 5,000 UNIT/0.5 ML VIAL SQ SCH (21:13)
[2020-01-10] MEDS: ASPIRIN 81 MG ECTAB PO SCH (21:14)
[2020-01-10] MEDS: MONTELUKAST SODIUM 10 MG TABLET PO SCH (21:14)
[2020-01-10] MEDS: UMECLIDINIUM BROMIDE 62.5MCG/BLISTER 7 PUFFS/INHALER INH SCH (21:16)
[2020-01-10] MEDS: TOPIRAMATE 100 MG TAB PO SCH (21:16)
[2020-01-11] MEDS: ALBUT/IPRATROP 3MG/0.5MG NEB 3 ML VIAL NEB SCH ×3 (03:15→11:51)
[2020-01-11] MEDS: LEVOTHYROXINE SODIUM 200 MCG TABLET PO SCH (05:54)
--- NOTE | 2020-01-11 06:02 | Electrocardiogram Report ---
Test Reason : Blood Pressure : / mmHG Vent. Rate : 086 BPM Atrial Rate : 086 BPM P-R Int : 150 ms QRS Dur : 070 ms QT Int : 364 ms P-R-T Axes : 043 011 037 degrees QTc Int : 435 ms Normal sinus rhythm with sinus arrhythmia Low voltage QRS Borderline ECG When compared with ECG of 16-APR-2016 19:24, No significant change was found Confirmed by Jose Guadalupe Meeks ([id number]) on 01/11/2020 6:02:27 AM Referred By: REFERRED SELF Confirmed By:Jose Guadalupe Meeks
[2020-01-11 07:58] LABS: Hematocrit (blood only) 36.2 % (37-47); Hemoglobin 9.9 g/dL (12.0-16.0); Mean Corpuscular Hemoglobin 25.2 pg (25-34); Mean Corpuscular Hgb Conc 27.3 g/dL (32-36); Mean Corpuscular Volume 92.1 fL (80-100); Mean Platelet Volume 9.4 fL (7.4-10.4); Nucleated RBC # (auto) 0.06 K/uL (0-0); Nucleated RBC % (auto) 0.4 %; Platelet Count 218 K/uL (130-400); RDW Standard Deviation 56.8 fL (36.4-46.3); Red Blood Count 3.93 M/uL (4.2-5.4); White Blood Count 12.82 K/uL (4.8-10.8)
[2020-01-11] MEDS: DOXEPIN HCL 50 MG CAPSULE PO SCH (08:18)
[2020-01-11] MEDS: allopurinoL 100 MG TAB PO SCH (08:18)
[2020-01-11] MEDS: LOSARTAN POTASSIUM 25 MG TAB PO SCH (08:19)
[2020-01-11] MEDS: TOPIRAMATE 100 MG TAB PO SCH ×2 (08:19→21:38)
[2020-01-11] MEDS: SIMVASTATIN 20 MG TAB PO SCH (08:19)
[2020-01-11] MEDS: HEPARIN SOD 5,000 UNIT/0.5 ML VIAL SQ SCH ×2 (08:19→20:54)
[2020-01-11] MEDS: FLUTICASONE/VILANTEROL 100/25MCG 14 PUFFS/INHALER INH SCH (08:26)
[2020-01-11] MEDS: INSULIN ASPART 100 UNITS/ML 3 ML PEN SC SCH ×4 (08:26→20:58)
[2020-01-11 08:32] LABS: BUN Creatinine Ratio 21.9 (10-20); Calcium 8.1 mg/dl (8.5-10.1); Creatinine Clr Calc Pharmacy 57.9 ml/min; Est GFR (African American) 47.4; Est GFR (Non-African American) 40.9; Magnesium 2.4 mg/dl (1.8-2.4)
[2020-01-11 08:33] LABS: Phosphorus 4.1 mg/dl (2.5-4.9)
--- NOTE | 2020-01-11 11:01 | Hospitalist Progress Note ---
Date of Service January 11, 2020 Assessment & Plan (1) Hypercapnic respiratory failure: ABG on admission shows pH 7.16/88/142: acute hypercapnic respiratory failure. Ddx includes COPD exacerbation/asthma attack, pneumonia, tracheomalacia, or CHF (though no swelling and BNP normal). Improving morrison bstantially on BiPap which makes sense with COPD/asthma vs. tracheomalacia. Procalcitonin normal, making bacterial pneumonia less likely. - Continue CAP abx for now until seen by pulm - BiPap PRN - DuoNebs now switched to PRN - Hold steroids for tracheomalacia seen on CT chest; will defer to pulm. No wheezing on exam in the ED or today. - Pulm consulted - Echo ordered given concern for CHF. - Hold further Lasix for now after getting IV dose in the ED. (2) Chronic kidney disease, stage 3 (moderate): Baseline Cr ~1.25, eGFR ~45. On presentation, Cr up to 1.45. ED felt she was in CHF, so gave her Lasix (but also gave her 500 mL IV fluids). I think she appeared mildly hypovolemic. - Gave an additional 500 mL IV fluids on admission, then stopped. - Monitor Cr -> Down to 1.35 today. (3) Diabetes mellitus with diabetic nephropathy: A1c was 6.3% in 10/2019. - Continue evening Lantus at 10 units (slightly lower than home 11 units) - Sliding scale insulin - Hold her other DM medications - Held gabapentin initially; will restart at low dose given neuropathic pain on 01/10 (4) Hypertension: BP was 160/90 in the ED. She was put on a Nitro-patch. Today she is 95/60. - Continue home losartan - Hold home Lasix for now (5) Migraines: Long-standing and fairly difficult to manage. - Continue home doxepin, topiramate - Hold Avjoy given it is not on formulary and only monthly anyhow. - Tylenol and sumatriptan PRN (6) Sleep apnea: Reports she consistently uses a CPAP at home. - BiPap as above (7) Hypothyroidism: TSH was 0.8 in 10/2019 and was consistent with priors. - Continue home levothyroxine 200 mcg. (8) Hyperlipidemia: - Continue statin (9) DVT prophylaxis: Heparin 5000 units Q12h DNR/DNI - Discussed with patient. She is ok with CPAP/BiPap, but would not want intubation, CPR, cardioversion, or other life-saving measures. Admission and Anticipated Discharge Date Admission Date: January 10, 2020 Subjective Feeling better today. Less shortness of breath. No cough. She is still having the twitching from yesterday and reports that she has some chronic back pain. Reports no fevers/chills, chest pain, shortness of breath, abdominal pain, nausea, or vomiting. Physical Exam Constitutional: WD/WN, vitals as above + morbidly obese; no acute distress Eyes: EOM intact bilaterally; no conjunctival abnormality ENMT: external ear and nose normal, oropharynx normal Neck: trachea midline, no thyromegaly normal visual inspection Respiratory: no labored breathing, no cough and not tachypneic Auscultation: + diminished lung sounds; no wheezes Cardiovascular: RRR, no murmur, no edema Gastrointestinal (Abdomen): Inspection/Auscultation: abdomen normal to inspection; abdomen not distended Musculoskeletal: no cyanosis or clubbing, extremities motor strength 5/5 Skin: no rashes, warm and dry Neurologic: moves all extremities and awake Psychiatric: Orientation: alert, oriented to person and cooperative Results & Data Results & Data ([facility]) Vital Signs (Past 12 Hours) Vital Signs Temp Pulse Pulse Resp BP BP Pulse Ox 01/11/20 07:39 36.4 C L 84 17 96/62 L 96 01/11/20 07:18 83 24 91 01/11/20 03:47 37 C 92 H 22 131/80 95 01/11/20 03:16 83 23 96 01/11/20 03:15 84 23 96 01/10/20 23:33 37.2 C 102 H 22 102/61 95 01/10/20 23:20 80 01/10/20 23:01 83 24 98 01/10/20 23:00 83 24 98 PG Care Time/CCT Total # of Minutes Spent Total Time Spent with Patient: Total time spent is greater than 50% in coordination of care (as documented) at patient's floor/unit and/or counseling patient: Coding Level of Care Code 35484 Subseq Hosp Care Lvl 2 Diagnoses Hypercapnic respiratory failure J96.92 Chronic kidney disease, stage 3 (moderate) N18.3 Diabetes mellitus with diabetic nephropathy E11.21 Hypertension I10 Migraines G43.909 Sleep apnea G47.30 Hypothyroidism E03.9 Hyperlipidemia E78.5 DVT prophylaxis Z29.9
[2020-01-11] MEDS ORDERED: ALBUT/IPRATROP 3MG/0.5MG NEB 3 ML VIAL NEB PRN (11:05)
[2020-01-11] MEDS: GABAPENTIN 300 MG CAP PO SCH ×2 (12:30→20:57)
[2020-01-11] MEDS: cefTRIAXone SODIUM 1,000 MG in DEXTROSE 5% 50 ML IV SCH (13:36)
--- NOTE | 2020-01-11 15:15 | XCELERA ---
[id number]
[2020-01-11] MEDS ORDERED: AZITHROMYCIN 250 MG TAB PO SCH (17:00)
--- NOTE | 2020-01-11 17:55 | Pulmonary Consultation ---
Date of Consultation January 11, 2020 Assessment & Plan (1) Acute respiratory failure with hypoxia and hypercapnia: Patient has known history of sleep apnea and is on CPAP at home with 14 cm of w ater and follows with Dr. Padilla. DME provider is [facility] Patient is encouraged to use her CPAP each night with sleep * Patient reports a CPAP machine is in bedroom but she typically sleeps in a recliner in the living room * Suggested to the patient that she move the CPAP to the living room with a recliner so that she uses it more often than not Patient denies any use of supplemental oxygen at home Attempt to titrate oxygen off to maintains SaO2 greater than 90% CT scan of the chest with question of pneumonitis and tracheomalacia * No bronchospasm on exam * Agree with no steroids at this time * Continue with Brio Ellipta and Incruse during admission * Further work-up outpatient per Dr. Padilla -she is scheduled see him 02/09/2020 at 10:30 AM Repeat ABG shows correction of acidosis to a pH of 7.31 and a PCO2 of 63. This appears to be compensated failure Repeat chest x-ray in the morning Outpatient follow-up and further evaluation (2) Sleep apnea: Patient probably has a combination of obesity hypoventilation syndrome with obstructive sleep apnea Uses CPAP at home infrequently Suggested corrective measures to use CPAP on a more regular basis Continue to follow-up with Dr. Padilla as an outpatient (3) Asthma: Most recent pulmonary function testing done in May 2018 does not show signi ficant restrictive pattern We will continue ICS, LABA, AC with PRN albuterol on discharge Follow-up with Dr. Padilla on discharge (4) Abnormal CT of the chest: CTA chest showed bilateral mosaic attenuation suggestive of air trapping. This was present on CT of the chest 03/23/2019. There also appears to be increased motion artifact on recent CT chest. Current CT suggest tracheobronchial malacia. No adventitious breath sounds such as stridor or evidence of EDAC on today's examination Mild mediastinal adenopathy noted. There is not present on previous CT 03/23/2019 but most likely is reactive. Would not entertain bronchoscopy at this time but will continue outpatient evaluation We will discuss CT findings with Dr. Spicer for further recommendations. We will continue azithromycin for 5 days and stop Would not recommend IV steroids at this time. Outpatient follow-up with Dr. Padilla 02/09/2020 Thank you for including us in the care of this patient. We will follow along tomorrow. Please refer to Dr. Spicer's addendum for further recommendations. History of Present Illness Attending Physician: Alexys De Jesus MD History of Present Illness Attending: Dr. Spicer The patient is a 69-year-old female with a complicated past medical history including chronic respiratory failure with hypercapnia, obstructive sle ep apnea on CPAP, obesity hypoventilation syndrome, congestive heart failure, diabetes mellitus type 2, hyperlipidemia, hypothyroidism, GERD, vitamin D deficiency, diabetic neuropathy, history of anemia, asthma, chronic stage III kidney disease, gout, hypertension, history of migraines, osteoarthritis, restless leg syndrome, secondary hyperparathyroidism, spinal stenosis in the cervical region, chronic venous insufficiency of the peripheral extremities, esophageal dysphasia, chronic CT of the chest abnormalities. The patient was admitted 01/10/2020 with hypercapnic respiratory failure. ABG on admission revealed a pH of 7.16, PCO2 of 88, PaO2 of 142, HCO3 of 31. Patient was placed on BiPAP overnight and is currently on 2 L/min via nasal cannula and saturating in the mid 90s. Blood and urine cultures were collected and are currently pending. Patient was empirically started ceftriaxone and azithromycin and was scheduled for nebulizer treatments every 4 hours scheduled as well as as needed. Patient is placed on Brio Ellipta (ICS/LABA) as well as Incruse Ellipta (AC) and continued on Singulair 10 mg every afternoon. Steroids were held secondary to possibility of tracheomalacia. There was no evidence of bronchospasm on examination at the time of her admission. The patient states that she feels almost back to baseline. She did well with the BiPAP last night with a setting of 12/6. She is currently on 2 L of supplemental oxygen via nasal cannula and has no shortness of breath. She denies any chest pain or tightness. She has no cough or sputum production. She has no recent travel or exposure to sick contacts. She further denies any contact with any COVID patient's and denies any loss of taste or smell or other symptoms associated with COVID-19. She denies lower extremity pain. She has no lower extremity edema that is asymmetrical. She has no history of DVT or pulmonary embolus. She is a non-smoker. She has no ethanol use. Other than asthma, sleep apnea, and obesity, she has no other pulmonary problems. She reports that she continues on the same regimen of Advair, Spiriva, Singulair, albuterol for the past several years. Patient currently has no acute complaints. Patient has followed with Dr. Padilla in the past and was last seen in May 2018. Most recent pulmonary function testing was completed at that time and revealed mild restrictive change with an FVC of 70% of predicted, FEV1 of 81% of predicted, FEF 25-75 was 154% of predicted. Treatment regimen at that time included Advair, Spiriva, Singulair, and albuterol. CPAP at that time was set to 14 cm of water. Her DME provider was [facility]. She was to be seen in 12 months but I see no further data reported. Patient denies any supplemental O2 use at home. She was scheduled to see Dr. Padilla at the beginning of the year but this was rescheduled because of COVID. Her next appointment with Dr. Padilla is 02/09/2020 at 10:30 AM. She is also scheduled for pulmonary function testing that day according to her report. Allergies Allergy/AdvReac Type Severity Reaction Status Date / Time NSAIDS (Non-Steroidal Allergy Severe HX KIDNEY Verified 01/10/20 13:14 Anti-Inflamma FAILURE Sulfa (Sulfonamide Allergy Unknown HIVES Verified 01/10/20 13:14 Antibiotics) levofloxacin AdvReac Verified 01/10/20 13:14 Home Medications Home Medications Medication Instructions Recorded Confirmed Type aspirin [Aspirin Low Dose] 81 mg PO HS 07/07/18 01/10/20 History acetaminophen 650 mg 650 mg PO UD PRN tab 04/19/19 01/10/20 History tablet,extended release albuterol sulfate 2.5 mg INH Q4H PRN 04/19/19 01/10/20 History albuterol sulfate 90 mcg/actuation 2 puff INHALATION Q6H PRN 04/19/19 01/10/20 History aerosol inhaler ferrous sulfate 325 mg (65 mg 325 mg PO DAILY #90 tab 04/20/19 01/10/20 Rx iron) tablet furosemide 40 mg tablet 80 mg PO QAM #180 tab 04/25/19 01/10/20 Rx montelukast 10 mg tablet 10 mg PO QPM #90 tab 04/25/19 01/10/20 Rx Victoza 3-Ilya 0.6 mg/0.1 mL (18 1.8 mg SQ .COMPLEX 90 Days #3 box 05/15/19 01/10/20 Rx mg/3 mL) subcutaneous pen injector NS levothyroxine 200 mcg tablet 200 mcg PO QAM #90 tab 07/13/19 01/10/20 Rx esomeprazole magnesium 40 mg See Rx Instructions .ROUTE 07/19/19 01/10/20 Rx capsule,delayed release .COMPLEX #180 capsule simvastatin 20 mg tablet 20 mg PO DAILY #90 tab 07/20/19 01/10/20 Rx allopurinol 100 mg tablet See Rx Instructions .ROUTE 07/27/19 01/10/20 Rx .COMPLEX #90 tablet nystatin 100,000 unit/mL oral 5 ml PO QID #250 ml 09/12/19 01/10/20 Rx suspension Dexcom G6 Kick Press Setter #1 ea NS 09/22/19 01/10/20 Rx Dexcom G6 Sensor #3 ea NS 09/22/19 01/10/20 Rx Dexcom G6 Transmitter #1 ea NS 09/22/19 01/10/20 Rx fluticasone 500 mcg-salmeterol 50 1 inh INHALATION BID #60 ea 09/22/19 01/10/20 Rx mcg/dose blistr powdr for inhalation Novolog U-100 Insulin aspart 100 See Rx Instructions SUBCUT UD 90 09/26/1901/09 Rx unit/mL subcutaneous solution Days #30 ml NS hydrocodone 5 mg-acetaminophen 325 1 tab PO Q8H PRN #20 tab 10/05/19 01/10/20 Rx mg tablet doxepin 100 mg capsule 100 mg PO DAILY #90 cap 10/16/19 01/10/20 Rx ergocalciferol (vitamin D2) 1,250 1,250 mcg PO MONTHLY #12 cap 10/16/19 01/10/20 Rx mcg (50,000 unit) capsule losartan 25 mg tablet 25 mg PO QAM #90 tab 10/16/19 01/10/20 Rx topiramate 100 mg tablet 100 mg PO .COMPLEX #450 tab 10/16/19 01/10/20 Rx sumatriptan succinate 100 mg tablet 100 mg PO .COMPLEX PRN 90 Days #27 10/23/19 01/10/20 Rx tab tramadol 50 mg tablet 50 mg PO BID PRN #180 tab 11/27/19 01/10/20 Rx Tresiba FlexTouch U-100 100 11 units SUBCUT HS #15 ml NS 12/07/19 01/10/20 Rx unit/mL (3 mL) subcutaneous pen tiotropium bromide 18 mcg capsule 1 cap INHALATION HS #90 puffs 12/07/19 01/10/20 Rx with inhalation device benzonatate 200 mg capsule 200 mg PO TID #90 cap 12/21/19 01/10/20 Rx loratadine 10 mg tablet 10 mg PO DAILY #30 tab 12/21/19 01/10/20 Rx OneTouch Delica Lancets 30 gauge #700 ea NS 12/22/19 01/10/20 Rx fremanezumab-vfrm 225 mg/1.5 mL 225 mg SQ MONTHLY #4.5 ml 12/22/19 01/10/20 Rx subcutaneous syringe pen needle, diabetic 31 gauge x #180 ea 12/22/19 01/10/20 Rx 3/16" gabapentin 300 mg capsule 300 mg PO .COMPLEX 90 Days #450 cap 12/29/19 01/10/20 Rx famotidine 40 mg tablet 40 mg PO DAILY #30 tab 01/02/20 01/10/20 Rx Patient History Medical History Chronic back pain Diverticular disease Fusion of spine C4-6 FUSION Hand crush injury Pulmonary embolism 2005 S/P TKA Temporomandibular joint disorder JAW NEVER LOCKED Thumb fracture Vitamin D deficiency (Chronic) Surgical History History of cholecystectomy OPEN History of colonoscopy History of endoscopic sinus surgery History of esophagogastroduodenoscopy (EGD) History of hysterectomy PITO WITH BSO History of total knee replacement RIGHT Family History Father Myocardial infarction Prostate cancer Colon cancer Mother Myocardial infarction Sister Myocardial infarction Denies family history of Ovarian cancer Breast cancer Social History Preferred Language: Ivorian Communication Ability: Effective Visual Impairment: No Limitations Hearing Ability: Normal Traffic Administrator Required: No Beliefs That Will Affect Care: None marital status: / Current Living Situation: Alone current occupational status: retired Other Information That Helps Us Care for You: No Feels Safe at Home: Yes Safety Concerns: Feels Safe At This Time Smoking Status: Never smoker Second Hand Exposure: No ; Hx Alcohol Use: No Hx Substance Use: Yes substance use type: painkillers and prescription drug Dental Care, Regularly: No Physical Activity Frequency: 1-2 Times per Week Seatbelt Use: always Sunscreen Use: No Review of Systems Review of Systems: All systems reviewed & are unremarkable except as noted in HPI & below Physical Exam Physical Exam: GENERAL : No acute distress. Pleasant and talkative. No dyspnea with full sentences. EYES: No icterus, gaze conjugate NOSE: No evidence of epistaxis. MOUTH: No lesions or candidiasis. Mucosa is moist NECK: Supple. No JVD LUNGS: CTA B/L, no wheezes, rales or rhonchi. Breath sounds are distant. Appropriate effort. No cough induced with deep inspiration. HEART: Regular, rate controlled ABDOMEN: Soft, NT, ND, BS Present EXTREMITIES: No LE edema, pedal pulses intact and equal bilaterally. NEURO: A&OX3 Results & Data Results & Data ([facility]) Vital Signs (Past 12 Hours) Vital Signs Temp Pulse Resp BP BP Pulse Ox 01/11/20 17:00 37.1 C 77 20 100/58 L 97 01/11/20 12:03 36.6 C 88 18 120/67 94 01/11/20 07:39 36.4 C L 84 17 96/62 L 96 01/11/20 07:18 83 24 91 Laboratory Results 01/11/20 07:34 01/11/20 07:34 01/10/20 01/11/20 13:48 18:03 ABG pH 7.16 L* 7.31 L ABG pCO2 88 H 63 H ABG pO2 142 H 72 L ABG HCO3 31 H 31 H ABG O2 Saturation 98.0 H 93.7 ABG Base Excess 0.1 3.[address] chest wo con CT DOSE: 689.18 mGycm CLINICAL HISTORY: 69 years-old Female with sob. Acute shortness of breath TECHNIQUE: Multiaxial CT images of the chest were performed without contrast. A dose lowering technique was utilized adhering to the principles of ALARA. COMPARISON: CTA of the chest 03/23/2019 FINDINGS: Cardiomegaly. No thoracic aortic aneurysm. Dilation of the pulmonary artery suggests pulmonary artery hypertension. There are a few prominent mildly enlarged paratracheal lymph nodes measuring up to 10 mm in short axis, unchanged and likely reactive. Trace pleural effusions. Study is motion degraded. No pneumothorax. Evaluation of the lung parenchyma is limited secondary to respiratory motion. There is sug gestion of mild emphysema. Intralobular septal thickening is noted with areas of mosaic attenuation. Linear consolidative opacities are present within the right greater than left lungs with intermixed groundglass densities. There is decreased AP dimension of the trachea and bronchi. Hepatosplenomegaly. Trace perihepatic ascites. Soft tissues are unremarkable. Degenerative changes of the shoulders and spine. IMPRESSION: 1. Cardiomegaly with trace pericardial effusions and mild pulmonary edema. 2. Findings suggestive of tracheobronchial malacia with mosaic attenuation suggestive of air trapping. 3. Linear consolidative and intermixed groundglass densities, most pronounced within the right upper lobe are suggestive of atelectasis. A superimposed pneumonitis would be difficult to exclude. 4. Mild mediastinal adenopathy, likely reactive. 5. Dilated main pulmonary artery likely indicates pulmonary artery hypertension. ACT 112: Negative or not required by law. Electronically signed by: Linden Medellin M.D. 01/10/2020 3:05 PM PG Care Time/CCT Total # of Minutes Spent Total Time Spent with Patient: Total time spent is greater than 50% in coordination of care (as documented) at patient's floor/unit and/or counseling patient: 40 minutes Coding Level of Care Code 59254 Inpt Consult Level 5 Diagnoses Acute respiratory failure with hypoxia and hypercapnia J96.01; J96.02 Sleep apnea G47.[address] of the chest R93.89 Time Spent (min) 40
[2020-01-11 18:14] LABS: Allen Test Pos (Pos); Base Excess ABG 3.5 mEq/L (-9-1.8); HCO3 ABG 31 mmol/L (19-24); Oxygen Saturation ABG 93.7 % (90-95); PCO2 ABG 63 mmHg (35-46); PO2 ABG 72 mmHg (80-95); pH ABG 7.31 (7.35-7.45)
[2020-01-11] MEDS: UMECLIDINIUM BROMIDE 62.5MCG/BLISTER 7 PUFFS/INHALER INH SCH (20:54)
[2020-01-11] MEDS: INSULIN GLARGINE SOLOSTAR 100 UNITS/ML 3 ML PEN SQ SCH (20:56)
[2020-01-11] MEDS: ASPIRIN 81 MG ECTAB PO SCH (20:56)
[2020-01-11] MEDS: MONTELUKAST SODIUM 10 MG TABLET PO SCH (20:57)
[2020-01-12] MEDS: LEVOTHYROXINE SODIUM 200 MCG TABLET PO SCH (06:21)
[2020-01-12 07:10] LABS: Base Excess VBG 2.2 mEq/L; HCO3 VBG 29 mmol/L; Oxygen Saturation VBG < 60.0 %; PCO2 VBG 55 mmHg (38-50); PO2 VBG 26 mmHg; pH VBG 7.33 (7.36-7.41)
[2020-01-12 07:23] LABS: Hematocrit (blood only) 35.7 % (37-47); Hemoglobin 9.9 g/dL (12.0-16.0); Mean Corpuscular Hemoglobin 24.9 pg (25-34); Mean Corpuscular Hgb Conc 27.7 g/dL (32-36); Mean Corpuscular Volume 89.9 fL (80-100); Mean Platelet Volume 9.4 fL (7.4-10.4); Platelet Count 214 K/uL (130-400); RDW Coefficient of Variation 16.8 % (11.5-14.5); RDW Standard Deviation 55.3 fL (36.4-46.3); Red Blood Count 3.97 M/uL (4.2-5.4); White Blood Count 9.79 K/uL (4.8-10.8)
[2020-01-12 07:25] LABS: BUN Creatinine Ratio 21.8 (10-20); Calcium 8.6 mg/dl (8.5-10.1); Creatinine Clr Calc Pharmacy 64.5 ml/min; Est GFR (African American) 54.2; Est GFR (Non-African American) 46.7; Magnesium 2.4 mg/dl (1.8-2.4); Potassium 3.8 mmol/L (3.5-5.1)
[2020-01-12 07:28] LABS: Phosphorus 2.8 mg/dl (2.5-4.9)
[2020-01-12] MEDS: TOPIRAMATE 100 MG TAB PO SCH (08:13)
[2020-01-12] MEDS: allopurinoL 100 MG TAB PO SCH (08:13)
[2020-01-12] MEDS: HEPARIN SOD 5,000 UNIT/0.5 ML VIAL SQ SCH (08:13)
[2020-01-12] MEDS: DOXEPIN HCL 50 MG CAPSULE PO SCH (08:13)
[2020-01-12] MEDS: GABAPENTIN 300 MG CAP PO SCH (08:14)
[2020-01-12] MEDS: LOSARTAN POTASSIUM 25 MG TAB PO SCH (08:14)
[2020-01-12] MEDS: SIMVASTATIN 20 MG TAB PO SCH (08:14)
[2020-01-12] MEDS: INSULIN ASPART 100 UNITS/ML 3 ML PEN SC SCH ×2 (08:16→12:26)
--- NOTE | 2020-01-12 10:05 | XRay Report ---
XR chest 2V PA/lateral CLINICAL HISTORY: Hypoxemia COMPARISON STUDY: 01/10/2020 FINDINGS: The heart is borderline enlarged. There is persistent but improving pulmonary edema. There is no lobar consolidation. There is minor blunting of the lateral costophrenic angles.[ IMPRESSION: Slight interval improvement in the pulmonary edema pattern. ACT 112: Negative or not required by law. Electronically signed by: George Burks M.D. 01/12/2020 10:04 AM
[2020-01-12] MEDS: FLUTICASONE/VILANTEROL 100/25MCG 14 PUFFS/INHALER INH SCH (11:15)
[2020-01-12] MEDS: cefTRIAXone SODIUM 1,000 MG in DEXTROSE 5% 50 ML IV SCH (13:10)
--- NOTE | 2020-01-12 15:45 | Discharge Summary ---
Date of Service January 12, 2020 Admission HPI Per Admitting Provider 69yo F w/ hx of DM, migraine, CKD, and HTN who presents with worsening hypercapneic respiratory failure. Per the patient, she has been increasingly short of breath for at least 3-4 weeks. It predominantly occurs when she is lying down, but overall has been getting worse even with movement and being upright. She reports that she sometimes has some mild sputum production when she lays down, but overall not much and no significant recent change in sputum color or quantity. She does report she has been wheezing some at home, and she uses inhalers for this. She also has maintenance inhalers, though I am unclear if she has a diagnosis of COPD or not. She has never been a smoker. She denies any fever or chills at home. Denies any family contacts that are sick. She has allergies and has been on Singulair for this as well as OTC Claritin. Principal Diagnosis Hypercapnic respiratory failure Discharge Exam Constitutional WD/WN, vitals as above + morbidly obese; no acute distress Eyes EOM intact bilaterally; no conjunctival abnormality ENMT external ear and nose normal, oropharynx normal Neck trachea midline, no thyromegaly normal visual inspection Respiratory no labored breathing, no cough and not tachypneic Auscultation: + diminished lung sounds; no wheezes Cardiovascular RRR, no murmur, no edema Gastrointestinal (Abdomen) Inspection/Auscultation: abdomen normal to inspection; abdomen not distended Musculoskeletal no cyanosis or clubbing, extremities motor strength 5/5 Skin no rashes, warm and dry Neurologic moves all extremities and awake Psychiatric Orientation: alert, oriented to person and cooperative Discharge Data Allergies Allergy/AdvReac Type Severity Reaction Status Date / Time NSAIDS (Non-Steroidal Allergy Severe HX KIDNEY Verified 01/10/20 13:14 Anti-Inflamma FAILURE Sulfa (Sulfonamide Allergy Unknown HIVES Verified 01/10/20 13:14 Antibiotics) levofloxacin AdvReac Verified 01/10/20 13:14 Consultations 01/10/20 14:44 ED Decision to Admit Stat 01/10/20 19:38 Consult Pulmonology Routine Ordered Studies 01/10/20 14:04 CT chest wo con Stat Hospital Course (1) Hypercapnic respiratory failure: ABG on admission shows pH 7.16/88/142: acute hypercapnic respiratory failure. Ddx includes COPD exacerbation/asthma attack, pneumonia, tracheomalacia, or CHF (though no swelling and BNP normal). Improving substantially on BiPap which makes sense with COPD/asthma vs. tracheomalacia. Procalcitonin normal, making bacterial pneumonia less likely. In the end, not entirely clear what cased her respiratory failure. She rebounded quickly. Pulmonology thought that maybe she had just a hypercapnic event from not using her CPAP. She never had wheezing and never seemed to be in an asthma or COPD exacerbation. - In the end, discharged on short course of abx, encouraged to use her CPAP at night (she had not been using it when sleeping in her recliner), and told to follow up with pulmonology. - Of note, she did get a single dose of IV Lasix in the ED. Her TTE showed good EF and no indication of diastolic dysfunction, so I didn't think HF was an issue, but possibly worth watching her weight in case heart failure played a role. - Discharged on home O2 as her O2 sat remained in the mid-80s on room air. (2) Chronic kidney disease, stage 3 (moderate): Baseline Cr ~1.25, eGFR ~45. On presentation, Cr up to 1.45. ED felt she was in CHF, so gave her Lasix (but also gave her 500 mL IV fluids). I think she appeared mildly hypovolemic. - Gave an additional 500 mL IV fluids on admission, then stopped. - Monitor Cr -> Down to 1.35 today. (3) Diabetes mellitus with diabetic nephropathy: A1c was 6.3% in 10/2019. - Continue evening Lantus at 10 units (slightly lower than home 11 units) - Sliding scale insulin - Hold her other DM medications - Held gabapentin initially; restarted at low dose given neuropathic pain on 01/10. It is worth discussing this dosing with her as any decrease in her respiratory drive could precipitate further issues. (4) Hypertension: BP was 160/90 in the ED. She was put on a Nitro-patch. Today she is 95/60. - Continue home losartan (5) Migraines: Long-standing and fairly difficult to manage. - Continue home doxepin, topiramate - Hold Avjoy given it is not on formulary and only monthly anyhow. - Tylenol and sumatriptan PRN (6) Sleep apnea: Reported to me that she consistently uses a CPAP at home; however, she admitted to [facility] that she doesn't use it when she sleeps in her recliner. - BiPap as above (7) Hypothyroidism: TSH was 0.8 in 10/2019 and was consistent with priors. - Continue home levothyroxine 200 mcg. (8) Hyperlipidemia: - Continue statin (9) DVT prophylaxis: Heparin 5000 units Q12h DNR/DNI - Discussed with patient. She is ok with CPAP/BiPap, but would not want intubation, CPR, cardioversion, or other life-saving measures. Total Time Total Time Spent Total Time Spent (In Minutes): 35 Discharge Plan Discharge Items Patient Disposition: Home - Self-Care Reason For Visit: SHORTNESS OF BREATH Discharge Diagnosis: High CO2 from sleep apnea and weight Possible pneumonia worsening breathing Condition on Discharge: Good Activity: Resume your previous activity Non-emergency contact: Primary Care Provider and Olive Packer Call non-emergency contact if: your symptoms worsen and your rectal temperature is above 100.4 Follow-up/Referrals: Edis Bra MD [Primary Care Provider] - 01/16/20 11:00 am (Please, follow up at Dr. Bar's office with his associate, aMrleny STEPHENSON, on WednesdayJanuary 15 at 11:00 am. *If you need to change this appointment, call their office at [phone].) Kavon Padilla MD [Physician] - (Please follow up with Dr. Padilla for your February 08 appointment.) Diet: Carb Consistent or DM2 Addtl Attending Provider Instructions: You were admitted with shortness of breath. We think this may have been a combination of things, including some shortness of breath from not using your CPAP overnight as well as a very mild pneumonia. We are sending you home with a course of antibiotics, as well as pulmonary recommendations that you move your CPAP machine closer to your recliner so that you can use it when you sleep there. There was some suggestion of fluid on the lungs on the CT scan; however, your ultrasound of your heart was good, so I do not think this was really playing much of a role. However, it will be good to continue taking your Lasix (furosemide) at home and weigh yourself daily to be sure you are not gaining any water weight. Pending Studies at Discharge: No Stand-Alone Forms: My [facility] [employer], Smoking Cessation Medications and DC Order Prescriptions: New azithromycin 250 mg Tablet 250 mg PO DAILY@1700 Qty: 3 RF: 0 Continued furosemide 40 mg tablet 80 mg PO QAM Qty: 180 RF: 3 montelukast 10 mg tablet 10 mg PO QPM Qty: 90 RF: 3 Victoza 3-Ilya 0.6 mg/0.1 mL (18 mg/3 mL) pen injector 1.8 mg SQ .COMPLEX 90 Days Qty: 3 RF: 3 levothyroxine 200 mcg tablet 200 mcg PO QAM Qty: 90 RF: 3 esomeprazole magnesium 40 mg capsule,delayed release(DR/EC) See Rx Instructions .ROUTE .COMPLEX Qty: 180 RF: 3 simvastatin 20 mg tablet 20 mg PO DAILY Qty: 90 RF: 3 allopurinol 100 mg tablet See Rx Instructions .ROUTE .COMPLEX Qty: 90 RF: 3 (DME) Dexcom G6 Actuarial [employer] Professor Misc See Rx Instructions .ROUTE .MEDSUPPLY Qty: 1 RF: 0 (DME) Dexcom G6 Sensor Device See Rx Instructions .ROUTE .MEDSUPPLY Qty: 3 RF: 5 (DME) Dexcom G6 Transmitter Device See Rx Instructions .ROUTE .MEDSUPPLY Qty: 1 RF: 1 Novolog U-100 Insulin aspart 100 unit/mL solution See Rx Instructions subcut UD 90 Days Qty: 30 RF: 3 hydrocodone-acetaminophen 5-325 mg tablet 1 tab PO Q8H PRN (Reason: pain) Qty: 20 RF: 0 sumatriptan succinate 100 mg tablet 100 mg PO .COMPLEX PRN (Reason: migraine headache) 90 Days Qty: 27 RF: 1 tramadol 50 mg tablet 50 mg PO BID PRN (Reason: Pain) Qty: 180 RF: 0 Spiriva with HandiHaler 18 mcg capsule, w/inhalation device 1 cap INHALATION HS Qty: 90 RF: 3 Tresiba FlexTouch U-100 100 unit/mL (3 mL) insulin pen 11 units SUBCUT HS Qty: 15 RF: 1 (DME) lancets [OneTouch Delica Lancets] 30 gauge misc See Dose Instructions .ROUTE .MEDSUPPLY Qty: 700 RF: 3 (DME) pen needle, diabetic [BD Ultra-Fine Mini Pen Needle] 31 gauge x 3/16" needle See Rx Instructions .ROUTE .MEDSUPPLY Qty: 180 RF: 3 Ajovy Syringe 225 mg/1.5 mL syringe 225 mg SQ MONTHLY Qty: 4.5 RF: 1 gabapentin 300 mg capsule 300 mg PO .COMPLEX 90 Days Qty: 450 RF: 0 famotidine [Pepcid] 40 mg tablet 40 mg PO DAILY Qty: 30 RF: 5 acetaminophen 650 mg tablet extended release 650 mg PO UD PRN (Reason: pain) RF: 0 ergocalciferol (vitamin D2) 1,250 mcg (50,000 unit) capsule 1,250 mcg PO MONTHLY Qty: 12 RF: 5 losartan 25 mg tablet 25 mg PO QAM Qty: 90 RF: 3 nystatin 100,000 unit/mL suspension 5 ml PO QID Qty: 250 RF: 0 loratadine [Claritin] 10 mg tablet 10 mg PO DAILY Qty: 30 RF: 0 benzonatate 200 mg capsule 200 mg PO TID Qty: 90 RF: 0 doxepin 100 mg capsule 100 mg PO DAILY Qty: 90 RF: 1 topiramate [Topamax] 100 mg tablet 100 mg PO .COMPLEX Qty: 450 RF: 1 albuterol sulfate 2.5 mg /3 mL (0.083 %) solution for nebulization 2.5 mg INH Q4H PRN (Reason: shortness of breath or wheezing) RF: 0 ferrous sulfate 325 mg (65 mg iron) tablet 325 mg PO DAILY Qty: 90 RF: 3 fluticasone propion-salmeterol [Advair Diskus] 500-50 mcg/dose blister with device 1 inh INHALATION BID Qty: 60 RF: 3 aspirin [Aspirin Low Dose] 81 mg Tablet,Delayed Release (Dr/Ec) 81 mg PO HS RF: 0 albuterol sulfate 90 mcg/actuation HFA aerosol inhaler 2 puff INHALATION Q6H PRN (Reason: shortness of breath) RF: 0 Discharge Orders: Discharge Order (Routine); Ordered 01/12/20 Ordered By: Alexys De Jesus Admission Data Admit Date/Time: 01/10/20 17:08 Attending Provider: Alexys De Jesus Admit Provider: Alexys De Jesus Primary Care Provider: Edis Bar Other Providers: Brad Castro ; Collin Hensley Other Interventions: Discharge Summary Assessment (RN) Last Done: 01/12/20 14:10 Coding Level of Care Code D/C Day Management >30 mins Diagnoses Hypercapnic respiratory failure J96.92 Chronic kidney disease, stage 3 (moderate) N18.3 Diabetes mellitus with diabetic nephropathy E11.21 Hypertension I10 Migraines G43.909 Sleep apnea G47.30 Hypothyroidism E03.9 Hyperlipidemia E78.5 DVT prophylaxis Z29.9
== END 2020-01-12 16:20 | disposition home or self-care (01) | DRG 189 ==
LOC: ED 11:24 → 2S 17:08